=== PATIENT | male | born 1955 | race Caucasian/White ===

== ENCOUNTER → 2017-06-07 | Day surgery (SDC) | payer OTHER, BC ==
[2017-05-28 07:36] VITALS: BMI 39.0
[~2017-06-07] VITALS: Ht 152.4 cm; Wt 90.9 kg
[~2017-06-07] MED LIST: ACETAMINOPHEN 325 MG TAB PO PRN; ASPI81TA28 PO; ATOR-26 PO; BUSP-8 PO; BUSP5TAB59 PO; CZR50 PO; DiphenhydrAMINE HCL 50 MG/ML VIAL XX SCH; KETAMINE HCL INJ 50 MG/ML 10 ML VIAL ONE; LACTATED RINGER'S 1000ML 1,000 ML IV SCH; LIDOCAINE HCL 2% 2 ML VIAL (20MG/ML) ONE; METF-384 PO; MIDAZOLAM HCL 1 MG/ML 2ML VIAL ONE; NTRGSL/4 UT; OMEP40CA41 PO; OXYC-57 PO; PIOG1TAB20 PO; PROPOFOL IV EMULSION 10 MG/ML 20 ML VIAL IV ONE; VENL75CA PO
[2017-06-07 07:36] VITALS: BP 149/90; PULSE 67; TEMP 36.9; O2SAT 94; Ht 152.4 cm; Wt 90.9 kg
[2017-06-07 07:56] LABS: HEMATOCRIT 42.2 % (42-52); MEAN CELL VOLUME 92.7 fL (80-100); MEAN PLATELET VOLUME 11.8 fL (7.4-10.4); PLATELET COUNT 175 K/uL (130-400); RED BLOOD COUNT 4.55 M/uL (4.7-6.1); WHITE BLOOD COUNT 8.99 K/uL (4.8-10.8)
[2017-06-07 08:12] LABS: MEAN CORPUSCULAR HGB CONC 33.4 g/dl (32-36)
[2017-06-07 08:18] LABS: BUN/CREATININE RATIO 14.3 (10-20); CALCIUM 8.6 mg/dl (8.5-10.1); CREATININE 0.84 mg/dl (0.60-1.40); POTASSIUM 3.6 mmol/L (3.5-5.1)
== END | disposition home or self-care (01) ==
LOC: C.ACU 07:15 → EDSTATUS 08:30
PROVIDERS: ATTEND Orthopaedic Surgery
DX: Z53.8 Procedure and treatment not carried out for other reasons (principal); M25.512 Pain in left shoulder

== ENCOUNTER → 2017-07-17 | Day surgery (SDC) | payer OTHER, BC ==
[2017-06-21 08:28] VITALS: BMI 39.0
--- NOTE | 2017-07-10 12:40 | HISTORY & PHYSICAL EXAMINATION ---
DATE OF ADMISSION: 07/17/2017 DATE OF MRI: 07/17/2017. SUBJECTIVE CHIEF COMPLAINT: Left shoulder pain. HISTORY OF PRESENT ILLNESS: The patient is a 61-year-old male who presents with left shoulder pain. He states that the pain occurs occasionally and is described as aching, sharp and throbbing. He has tried cortisone injections with only mild improvement. The patient has previously underwent attempts in an MRI machine at 2 different locations but was able to finish the study and he will receive IV sedation for a left shoulder MRI. PAST MEDICAL HISTORY: Significant for hypertension, hypercholesterolemia, sleep apnea, tqn-hancfoz-ruqdhckhe diabetes, GERD, obesity. PAST SURGICAL HISTORY: The patient denies any surgeries. SOCIAL HISTORY: He drinks 3-4 cans of beer a day. Denies smoking or tobacco use. She denies IV or illegal drug use. He lives in a 2-story house. 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 FAMILY HISTORY: His mom has a history of heart attack. ALLERGIES: No known drug allergies. MEDICATIONS: Metformin 1000 mg daily, omeprazole 40 mg daily, losartan 50 mg daily, atorvastatin, aspirin 81 mg, buspirone 5 mg, pioglitazone 45 mg REVIEW OF SYSTEMS: Denies headaches, fevers, chills, double vision, blurry vision, sore throat, cough, chest pain, nausea, vomiting, diarrhea, constipation, numbness, tingling, difficulty going to the bathroom, thoughts to harm herself or harm others or depression. He is positive for joint pain and joint stiffness of the left shoulder. OBJECTIVE: GENERAL APPEARANCE: The patient is a 61-year-old male sitting in no acute distress. He is well dressed, well nourished. He is awake, alert and oriented x3. VITAL SIGNS: He is 60 inches tall, 205 pounds. HEAD, EYES, EARS, NOSE, AND THROAT: Normocephalic, atraumatic. Extraocular movements are intact. Mucosa was moist. No septal deviation. NECK: Supple with no lymphadenopathy, no JVD, no thyromegaly. HEART: Regular rate and rhythm. LUNGS: Clear to auscultation. No wheezing or rhonchi. ABDOMEN: Soft, nontender, nondistended. Normal bowel sounds, no hepatosplenomegaly. EXTREMITIES: Paying particular attention to the left shoulder, he has active forward flexion 0-180 degrees, abduction to 0-180 degrees, external rotation 0-90 degrees, internal rotation 0-90 degrees. He has a positive Neer and Doherty impingement sign, negative Speed's, negative Calhoun's. Strength of the rotator cuff is diminished compared to the other side. NEUROLOGIC: Cranial nerves II-XII are intact. Pulses were compared bilaterally and were equal. IMPRESSION: Left shoulder pain. MRI to rule out rotator cuff tear. PLAN: The patient has had shoulder pain for some time now. He has tried cortisone injections with minimal relief. Initially, we wanted to order an MRI, but he was unable to obtain at 2 different facilities due to a claustrophobic reaction. We will have him scheduled for a left shoulder MRI with IV sedation. Risks and benefits to the MRI were discussed and he understands these risks and benefits. All questions were answered to his satisfaction. We will see him after the MRI to go over the test results and treatment options. BLANCA
[~2017-07-17] VITALS: Ht 152.4 cm; Wt 90.9 kg
[~2017-07-17] MED LIST changes: -ACETAMINOPHEN 325 MG TAB PO PRN; +ATROPINE SULFATE 0.1 MG/ML 5ML SYR IV PRN; -DiphenhydrAMINE HCL 50 MG/ML VIAL XX SCH; +EpHEDrine SULFATE INJ 50 MG/ML AMP IV PRN; +FENTANYL CITRATE INJ 50 MCG/1 ML 2 ML VIAL ONE; -LIDOCAINE HCL 2% 2 ML VIAL (20MG/ML) ONE; +ONDANSETRON INJ 2 MG/ML 2 ML VIAL IV PRN
[2017-07-17 09:40] VITALS: BP 174/76; PULSE 61; TEMP 36.6; O2SAT 95; Ht 152.4 cm; Wt 90.9 kg
[2017-07-17 11:40] VITALS: BP 150/91; PULSE 74; TEMP 36.7; O2SAT 100
--- NOTE | 2017-07-17 12:07 | Anesthesiology Progress Note ---
Anesthesia Post Op Note Date & Time Jul 17, 2017 at 12:07 Vital Signs Pain Intensity: 0 Vital Signs Past 12 Hours Date Time Temp Pulse Resp B/P (MAP) Pulse Ox O2 Delivery O2 Flow Rate FiO2 07/17/17 11:40 36.7 74 18 150/91 100 Nasal Cannula 2 07/17/17 09:40 36.6 61 22 174/76 (108) 95 Room Air Notes Mental Status: alert / awake / arousable, participated in evaluation Pt Amnestic to Procedure: Yes Nausea / Vomiting: adequately controlled Pain: adequately controlled Airway Patency, RR, SpO2: stable & adequate BP & HR: stable & adequate Hydration State: stable & adequate Anesthetic Complications: no major complications apparent
[2017-07-17 12:15] VITALS: BP 183/82; PULSE 71; TEMP 36.6; O2SAT 96
--- NOTE | 2017-07-17 12:27 | DIAGNOSTIC IMAGING REPORT ---
LEFT UPPER EXT JOINT WITHOUT CLINICAL HISTORY: 61 years-old Male with LT SHOULDER PAIN. Symptoms are subacute in nature. Decreased range of motion following recent overhead work in December 2016. COMPARISON: None. TECHNIQUE: Multiplanar, multi sequence MRI of the left shoulder was performed without intravenous contrast. FINDINGS: Exam is very limited secondary to patient motion. ROTATOR CUFF: There is a large full-thickness tear of the supraspinatus tendon involving the anterior, mid and posterior fibers which appears to be complete, however a few residual fibers may be intact. There is redundancy and retraction of the tendon fibers to the level of the mid humeral head. There is mild to moderate atrophy of the supraspinatus musculature with associated mild intramuscular edema and fluid tracking along the myotendinous junction. There is thickening with intermediate T2 signal noted involving the infraspinatus tendon compatible with moderate tendinosis. Low-grade partial thickness articular sided tearing involves the posterior insertional fibers of the infraspinatus tendon, best seen on the coronal images. No definite high-grade or full-thickness tear of the infraspinatus seen. Teres minor is intact. There is moderate tendinosis of the subscapularis tendon with intermediate grade intrasubstance tearing noted involving the insertional fibers. (for example best seen on image 15 of the axial PD series). Additionally, there is high-grade partial thickness tearing noted of the inferior and mid fibers which is irregular and complex seen on image 14 of the axial series. No retraction or full-thickness tear identified. The superior fibers appear intact. BICEPS TENDON: The long head biceps tendon is intact. No definite evidence of tendinosis. The biceps debby and anchor are intact. Please note however that evaluation of the biceps tendon is limited secondary to motion. LABRUM: Multifocal fraying and irregularity involves the labrum notably within the superior quadrants both anteriorly and posteriorly with additional fraying of the anteroinferior labrum. No discrete acute labral tear identified. GLENOHUMERAL JOINT: Mild glenohumeral osteoarthritis with marginal spurring is noted. No definite intra-articular loose body. There is a moderate to large joint effusion. ACROMIOCLAVICULAR JOINT: Moderate osteoarthritis with capsular hypertrophy and marginal spurring involves the AC joint. The acromion has a curved undersurface. There is a moderate degree of subacromial/subdeltoid bursitis with fluid from the glenohumeral joint space tracking into the subacromial tissue. OUTLET SPACES: The suprascapular notch and quadrilateral space are without obstructing or space occupying lesions. BONE MARROW: No focal abnormality, fracture or marrow occupying lesion. SOFT TISSUES: The periarticular soft tissues are unremarkable. IMPRESSION: 1. Very limited study secondary to extensive patient motion. 2. Large full-thickness tear of the supraspinatus tendon appears to be complete, however a few residual fibers may be intact. There is redundancy and retraction of the tendon with likely reactive fluid tracking along the myotendinous junction. Additionally, there is mild to moderate atrophy of the supraspinatus musculature. 3. High-grade partial tear involves the mid and inferior fibers of the subscapularis tendon with background tendinosis. 4. Tendinosis of the infraspinatus tendon with low-grade partial articular sided fraying of the posterior insertion of fibers. No high-grade or full-thickness tear. 5. Fluid within the subacromial/subdeltoid bursa suggests admixture of fluid extending through the full thickness supraspinatus tear with subacromial/subdeltoid bursitis. The above report was generated using voice recognition software. It may contain grammatical, syntax or spelling errors. Electronically signed by: Denilson Robbins M.D. 07/17/2017 12:26 PM Dictated Date/Time: 07/17/2017 12:08 PM
== END | disposition home or self-care (01) ==
LOC: C.ACU 09:22
PROVIDERS: ATTEND Orthopaedic Surgery
DX: M75.122 Complete rotator cuff tear or rupture of left shoulder, not specified as traumatic (principal); I10 Essential (primary) hypertension; E78.00 Pure hypercholesterolemia, unspecified; E11.9 Type 2 diabetes mellitus without complications; K21.9 Gastro-esophageal reflux disease without esophagitis; E66.9 Obesity, unspecified; G47.30 Sleep apnea, unspecified; Z82.49 Family history of ischemic heart disease and other diseases of the circulatory system; Z79.84 Long term (current) use of oral hypoglycemic drugs; Z79.899 Other long term (current) drug therapy

== ENCOUNTER 2017-08-13 08:23 | Day surgery (SDC) | payer OTHER, BC ==
[2017-07-31 11:41] VITALS: BMI 40.0
--- NOTE | 2017-07-31 12:18 | PAT Medication Instructions ---
Service Date Jul 31, 2017. Current Home Medication List Aspirin (Aspirin Ec), 81 MG PO QAM Atorvastatin (Lipitor), 80 MG PO QAM Buspirone Hcl (Buspirone Hcl), 1 TAB PO QAM Losartan Potassium (Losartan Potassium), 1 TAB PO QAM Metformin Hcl (Glucophage), 1,000 MG PO QAM Omeprazole (Prilosec), 40 MG PO QAM Pioglitazone Hcl (Pioglitazone Hcl), 1 TAB PO QAM Venlafaxine Hcl (Effexor Xr), 1 CAP PO QAM Medication Instructions For Your Scheduled Surgery - Check with surgeon for instructions: Aspirin (Aspirin Ec), 81 MG PO QAM - Hold the following medications 48 hours prior to surgery: Metformin Hcl (Glucophage), 1,000 MG PO QAM - Hold the following medications the morning of surgery: Losartan Potassium (Losartan Potassium), 1 TAB PO QAM Pioglitazone Hcl (Pioglitazone Hcl), 1 TAB PO QAM - Take the following medications the morning of surgery with a sip of water: Venlafaxine Hcl (Effexor Xr), 1 CAP PO QAM Omeprazole (Prilosec), 40 MG PO QAM Buspirone Hcl (Buspirone Hcl), 1 TAB PO QAM Atorvastatin (Lipitor), 80 MG PO QAM If you have any questions please call us at [phone] or [phone] or [phone]
--- NOTE | 2017-07-31 12:55 | DIAGNOSTIC IMAGING REPORT ---
CHEST PREADMISSION(PA/LAT) CLINICAL HISTORY: 61 years-old Male presenting with preoperative assessment. TECHNIQUE: PA and lateral views of the chest were obtained. COMPARISON: None. FINDINGS: Cardiomediastinal silhouette normal. Lungs and pleural spaces clear. Degenerative changes of the thoracic spine. Upper abdomen normal. IMPRESSION: 1. No acute cardiopulmonary disease. Electronically signed by: Alexey Medina M.D. 07/31/2017 12:53 PM Dictated Date/Time: 07/31/2017 12:53 PM
[2017-07-31 13:45] LABS: BASO % 0.2 %; BASO ABS # 0.02 K/uL (0-0.2); COMPLETE YES; EOS % 4.9 %; HEMATOCRIT 42.4 % (42-52); IG% 0.2 %; LYMPH ABS # 3.03 K/uL (1.2-3.4); MEAN CELL VOLUME 93.2 fL (80-100); MEAN CORPUSCULAR HEMOGLOBIN 32.7 pg (25-34); MEAN CORPUSCULAR HGB CONC 35.1 g/dl (32-36); MEAN PLATELET VOLUME 12.5 fL (7.4-10.4); MONO % 7.7 %; PLATELET COUNT 169 K/uL (130-400); RED BLOOD COUNT 4.55 M/uL (4.7-6.1); WHITE BLOOD COUNT 8.18 K/uL (4.8-10.8)
[2017-07-31 13:52] LABS: BUN/CREATININE RATIO 15.5 (10-20); CALCIUM 8.6 mg/dl (8.5-10.1); CREATININE 0.73 mg/dl (0.60-1.40); POTASSIUM 3.9 mmol/L (3.5-5.1)
[2017-07-31 13:57] LABS: PARTIAL THROMBOPLASTIN RATIO 1.1; PROTHROMBIN TIME (PATIENT) 11.1 SECONDS (9.0-12.0)
--- NOTE | 2017-08-12 08:32 | HISTORY & PHYSICAL EXAMINATION ---
DATE OF ADMISSION: 08/13/2017 CHIEF COMPLAINT: Left shoulder pain. HISTORY OF PRESENT ILLNESS: The patient is a 61-year-old male who presented with left shoulder pain. He states that the pain occurs occasionally is described as aching, sharp and throbbing. The patient has tried cortisone injections, nonsteroidal anti-inflammatories and physical therapy with minimal relief. He would like to proceed with a left shoulder rotator cuff repair, subacromial decompression and distal clavicle excision. PAST MEDICAL HISTORY: Significant for hypertension, hypercholesterolemia, sleep apnea, nlm-oifvrmn-fitikepou diabetes, GERD, and obesity. PAST SURGICAL HISTORY: The patient denies any surgeries. SOCIAL HISTORY: Drinks 3-4 cans of beer a day. He denies smoking or tobacco use. Denies IV or illegal drug use. He lives in a [address] house. 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 FAMILY HISTORY: His mom has a history of heart attack. ALLERGIES: He has no known drug allergies. MEDICATIONS: Metformin 1000 mg daily, omeprazole 40 mg daily, losartan 50 mg daily, atorvastatin, aspirin 81 mg, buspirone 5 mg, pioglitazone 45 mg. REVIEW OF SYSTEMS: He denies headaches, fevers, chills, double vision, blurry vision, sore throat, chest pain, nausea, vomiting, diarrhea, constipation, numbness, tingling, difficulty going to the bathroom, thoughts to harm herself or harm others or depression. He is positive for joint pain and joint stiffness of the left shoulder. OBJECTIVE: GENERAL APPEARANCE: The patient is a 61-year-old male sitting in no acute distress. He is well dressed, well nourished. He is awake, alert and oriented x3. VITAL SIGNS: She is 60 inches tall, 205 pounds. HEENT: Normocephalic, atraumatic. Extraocular movements are intact. Mucosa was moist. No septal deviation. NECK: Supple with no lymphadenopathy, no JVD, no thyromegaly. HEART: Regular rate and rhythm with no murmurs or gallops. LUNGS: Clear to auscultation. No wheezing or rhonchi. ABDOMEN: Soft, nontender, nondistended. Normal bowel sounds, no hepatosplenomegaly. EXTREMITIES: Paying particular attention to the left shoulder, he is able to actively forward flex 0-180 degrees, abduct 0-180 degrees, externally rotate 0-90 degrees and internally rotate 0-90 degrees. He has positive Neer impingement sign negative Speed's, negative Bennett's positive empty can, strength of the rotator cuff is diminished compared to the other side. NEUROLOGIC: Cranial nerves II-XII were intact. Pulses were compared bilaterally and were equal. IMPRESSION: Left shoulder rotator cuff tear. PLAN: The patient is scheduled for a left shoulder rotator cuff repair, subacromial decompression, and distal clavicle excision. The patient has underwent cortisone injections, nonsteroidal anti-inflammatories and physical therapy with no relief. He would like to proceed with a left shoulder rotator cuff repair, subacromial decompression, and distal clavicle excision. Risks and benefits to surgery were discussed that included but not limited to infection, DVT, pain, stiffness, need for revision surgery, damage to blood vessels, damage to nerves, PE, and anesthesia risks were all discussed with the patient and he wishes to proceed. All questions were answered to his satisfaction. No DVT prophylaxis is needed. He will be discharged home with outpatient physical therapy. BLANCA
[~2017-08-13] VITALS: Ht 152.4 cm; Wt 93.3 kg
[~2017-08-13 08:23] MED LIST changes: -ATROPINE SULFATE 0.1 MG/ML 5ML SYR IV PRN; -BUSP-8 PO; +CEFAZOLIN 2000 MG/60 ML D5W IV SCH; +DEXAMETHASONE SOD INJ 4 MG/ML VIAL ONE; -EpHEDrine SULFATE INJ 50 MG/ML AMP IV PRN; +GLYCOPYRROLATE INJ 0.2 MG/ML VIAL ONE; -KETAMINE HCL INJ 50 MG/ML 10 ML VIAL ONE; +LIDOCAINE HCL 2% 2 ML VIAL (20MG/ML) ONE; +NEOSTIGMINE METHYLSULFATE 5 MG/5 ML SYR ONE; -NTRGSL/4 UT; -ONDANSETRON INJ 2 MG/ML 2 ML VIAL IV PRN; +ONDANSETRON INJ 2 MG/ML 2 ML VIAL ONE; -OXYC-57 PO; +ROCURONIUM BROMIDE 10 MG/ML 5 ML VIAL IV ONE; +ROPIVACAINE 0.5% 5 MG/ML 30 ML VIAL ONE
[2017-08-13 08:45] VITALS: BP 160/89; PULSE 64; TEMP 36.5; O2SAT 96; Ht 152.4 cm; Wt 93.3 kg
--- NOTE | 2017-08-13 08:49 | History & Physical Bridge Note ---
H&P Re-Evaluation Bridge Note: I have examined the patient, reviewed the History & Physical and in the interval since the performance of the History & Physical I have noted the following changes of clinical significance: No changes noted
[2017-08-13] MEDS ORDERED: LIDOCAINE/EPINEPHRINE 1% 20 ML VIAL ONE (09:39)
[2017-08-13] MEDS ORDERED: BUPIVACAINE 0.5 % 5 MG/1 ML MPF 30ML VIAL ONE (09:40)
[2017-08-13] MEDS ORDERED: EpINEphrine HCL INJ 1 MG/ML 5ML SYRINGE ONE (09:40)
[2017-08-13] MEDS ORDERED: DexMEDEtomidine HCL 100 MCG/ML 2ML VIAL IV ONE (09:54)
[2017-08-13] MEDS ORDERED: MIDAZOLAM HCL 1 MG/ML 2ML VIAL ONE (10:36)
[2017-08-13] MEDS ORDERED: EpHEDrine SULFATE 50MG/5ML SYR ONE ×2 (10:58→12:17)
[2017-08-13] MEDS ORDERED: GLYCOPYRROLATE INJ 0.2 MG/ML VIAL ONE (10:58)
[2017-08-13] MEDS ORDERED: ROCURONIUM BROMIDE 10 MG/ML 5 ML VIAL IV ONE (10:58)
[2017-08-13] MEDS ORDERED: PHENYLEPHRINE HCL INJ 10 MG/ML VIAL ONE (10:58)
[2017-08-13] MEDS ORDERED: LARYING-O-JET KIT (LTA) ONE ×2 (10:58)
[2017-08-13] MEDS ORDERED: ATROPINE SULFATE 0.1 MG/ML 5ML SYR IV PRN (11:30)
[2017-08-13] MEDS ORDERED: HYDROmorphone INJ 2 MG/ML SYR/VIAL IV PRN (11:30)
[2017-08-13] MEDS ORDERED: KETOROLAC TROMETHAMINE 30 MG/ML VIAL IV. PRN (11:30)
[2017-08-13] MEDS ORDERED: ONDANSETRON INJ 2 MG/ML 2 ML VIAL IV PRN ×2 (11:30→12:30)
[2017-08-13] MEDS ORDERED: D5W AND 1/2NSS + 20MEQ KCL 1,000 ML IV SCH (12:30)
[2017-08-13] MEDS ORDERED: OXYCODONE/ACETAMINOPHEN 5-325 TAB PO PRN ×2 (12:30)
[2017-08-13] MEDS ORDERED: IBUPROFEN 200 MG TAB PO PRN (12:30)
[2017-08-13] MEDS ORDERED: OXYC-57 PO (12:33)
--- NOTE | 2017-08-13 12:36 | Discharge Instructions ---
Discharge Instructions Date of Service Aug 13, 2017. Admission Reason for Admission: Left Shoulder Impingement, Osteoarthritis, Rtc Tea Discharge Discharge Diagnosis / Problem: S/P Left shoulder RCR, SAD, DCE Discharge Goals Goal(s): Decrease discomfort, Improve function Activity Recommendations Activity Limitations: per Instructions/Follow-up section . Instructions / Follow-Up Instructions / Follow-Up [facility] DISCHARGE INSTRUCTIONS: ROTATOR CUFF REPAIR SELF CARE INSTRUCTIONS A. You are permitted to loosen your sling/immobilizer to move your elbow, wrist , and hand to prevent stiffness. You should use your well arm (good arm) to assist the operated extremity when trying to raise the arm away from the body, hygiene purposes. Do NOT actively try to use/engage your shoulder muscles in operative arm at this time. You should NOT do overhead activity, lifting, or attempt to reach behind your back. B. You may start Physical Therapy upon discharge 2-3 days after surgery. You will be provided a prescription for therapy with specific restrictions, if needed, at time of discharge. C. At 48 hours post-operatively, you may change your dressing. Use band-aids and change daily. You are allowed to shower at this time and get the incision area wet, but DO NOT soak or submerge incision area in water. (No baths, swimming pools, hot tubs) D. Do NOT apply soap or any ointment/lotions directly over incision. E. You may use ice as needed to operative shoulder SPECIAL CARE INSTRUCTIONS: VERY IMPORTANT TO READ AND REVIEW A. There are a few signs you need to watch for after you are home. Call [facility] at [phone] if you experience any of the following: a. Increased severe shoulder pain. Some pain is expected especially when you exercise b. Increased swelling in your shoulder or arm; pain or swelling in either upper extremity. (Note: swelling and stiffness is normal and expected for several weeks post op, depending on type of shoulder surgery you had). c. Any fluid or drainage from the incision; redness of the incision. d. Shortness of breath or chest pain. B. Please call [facility] at [phone] if you have any questions or concerns about your operation or recovery. C. Call your physician if: a. Temperature is greater than 101 degrees (F). b. Pain is not relieved by prescribed pain medications. c. Increase drainage or redness from incision. d. Unanswered questions or concerns. D. Pain Medication: a. You will be prescribed pain medication upon discharge that should last till your first post-operative appointment. b. If you experience nausea and/or skin rash, discontinue this medication and contact our office for an alternative medication. c. Caution- narcotic pain medication can cause constipation. FOLLOW UP VISIT: Please call [facility] at [phone] to schedule a follow up appointment 10-14 days from your surgery date. Current Hospital Diet Patient's current hospital diet: Regular Diet Discharge Diet Recommended Diet: Regular Diet Procedures Procedures Performed: Left Shoulder Arthroscopic Subacromial Decompression, Distal Clavicle Excision, Rotator Cuff Repair Pending Studies Studies pending at discharge: no Medical Emergencies . Who to Call and When: Medical Emergencies: If at any time you feel your situation is an emergency, please call 911 immediately. . Non-Emergent Contact Non-Emergency issues call your: Surgeon Call Non-Emergent contact if: temperature is above 101.5, your pain is worsening, wound has increased drainage, wound has increased redness . "Provider Documentation" section prepared by Stephon Solomon. . VTE Core Measure Inpt VTE Proph given/why not?: Treatment not indicated [place] Drug Monitoring Program Search Results: patient reviewed within database, no issues identified
[2017-08-13] MEDS ORDERED: PROPOFOL IV EMULSION 10 MG/ML 20 ML VIAL IV ONE (12:37)
--- NOTE | 2017-08-13 13:10 | Anesthesiology Progress Note ---
Anesthesia Post Op Note Date & Time Aug 13, 2017 at 13:10 Vital Signs Pain Intensity: 0 Vital Signs Past 12 Hours Date Time Temp Pulse Resp B/P (MAP) Pulse Ox O2 Delivery O2 Flow Rate FiO2 08/13/17 13:00 36.3 82 16 140/72 93 Nasal Cannula 3 08/13/17 12:50 78 16 118/78 93 Nasal Cannula 4 08/13/17 12:40 36.2 82 16 157/89 93 Nasal Cannula 4 08/13/17 12:30 36.2 81 16 149/79 94 Nasal Cannula 4 08/13/17 08:45 36.5 64 18 160/89 96 Room Air Notes Mental Status: alert / awake / arousable, participated in evaluation Pt Amnestic to Procedure: Yes Nausea / Vomiting: adequately controlled Pain: adequately controlled Airway Patency, RR, SpO2: stable & adequate BP & HR: stable & adequate Hydration State: stable & adequate Anesthetic Complications: no major complications apparent
[2017-08-13 13:18] VITALS: BP 148/90; PULSE 85; TEMP 36.3; O2SAT 93
[2017-08-13 13:48] VITALS: BP 170/92; PULSE 90; O2SAT 94
[2017-08-13 14:18] VITALS: BP 155/90; PULSE 85; TEMP 36.3; O2SAT 93
--- NOTE | 2017-08-13 15:19 | [facility] Operative Report ---
Operative Report Operative Date Aug 13, 2017. Pre-Operative Diagnosis Left shoulder rotator cuff tear, impingement, ac joint arthritis, labral tear, synovitis Post-Operative Diagnosis Same Procedure(s) Performed Left Shoulder Arthroscopic Subacromial Decompression, Distal Clavicle Excision, Rotator Cuff Repair, Extensive Debridement Surgeon Dr Alexey Figueroa Sales Project Manager Surgeon(s) Stephon Solomon PA-C Estimated Blood Loss 5ml Findings As above Specimens None as per Surgeon Drains none Anesthesia Gen. and interscalene block Complication(s) None Disposition Recovery Room / PACU Indications 61-year-old male who developed a full-thickness rotator cuff tear. He wishes to proceed with arthroscopic repair. Description of Procedure The MRI demonstrated a full-thickness rotator cuff tear. We discussed various treatment measures. The patient wished to proceed with arthroscopic repair. Risks, benefits and alternatives to surgery including, but not limited to, infection DVT, pain, stiffness, need for revision surgery, failure to relieve all symptoms, damage to blood vessels, damage to nerves, risk of anesthesia were discussed with the patient and they wished to proceed. The patient was identified. Laterality was confirmed and marked. The patient received a preoperative antibiotic as well as an interscalene block. They were transferred to the operating room and placed in the supine position and induced into general endotracheal anesthesia per the anesthesia staff. The patient was then safely transferred to the lateral decubitus position, secured by a beanbag. An axillary roll was placed. All pressure points were well-padded. The limb was placed in 10 pounds of lateral traction and then prepped and draped in the usual standard manner with ChloraPrep. The portal sites were anesthetized with 2% lidocaine with epinephrine. I made a standard posterior viewing portal made through a stab incision and then bluntly entered the glenohumeral joint. Then under spinal needle localization, I establish an anterior superolateral portal. The patient had a full-thickness rotator cuff tear through the supraspinatus extending into the infraspinatus. They had a degenerative tear in the anterior, superior and posterior aspects of the glenoid labrum. This was debrided back to a stable base utilizing a shaver. Synovitic change in the anterior aspect of the joint was debrided utilizing a shaver. The cartilage of the humeral head and glenoid had some minor degeneration. The long head of the biceps was normal. The subscapularis had some longitudinal splitting but the insertion was intact. I then removed the instrumentation from the joint and entered the subacromial space and established a lateral portal. There was a full-thickness rotator cuff tear that measured about 2.5 cm in diameter. I debrided the footprint with a shaver to establish a good bleeding response. Through a stab incision I placed a 5.5 mm HEALICOIL suture anchor. I passed the ultra braid sutures in a horizontal mattress with a fast passive scorpion. I then shuttled the ultra tape with a shuttle suture. I repeated this process for a posterior medial anchor. I tied the ULTRABRAID sutures with sliding Winchester knots reinforced for 3 half hitches on alternating posts. I then took 1 ULTRABRAID suture and one ultra tape from each anchor I placed them in a 5.5 mm Multifix S anchor. I placed one anterolaterally. I then repeated this process another suture anchor posterolaterally, completing my double row construct. I then released the CA ligament with cautery and performed a subacromial decompression, first removing the anterior inferior spur from laterally and then completing with a cutting block technique. I then performed a distal clavicle excision removing a total of 10 mm of bone. All instrumentation was then removed from the shoulder. Portal sites were closed with nylon. A sterile dressing was applied and a sling placed. All needle and sponge counts were correct at the end of the procedure. The patient was transferred to the PACU in stable condition without apparent complication. I attest to the content of the Intraoperative Record and any orders documented therein. Any exceptions are noted below.
== END 2017-08-13 13:18 | disposition home or self-care (01) ==
LOC: C.ACU 08:23
PROVIDERS: ATTEND Orthopaedic Surgery
DX: M75.122 Complete rotator cuff tear or rupture of left shoulder, not specified as traumatic (principal); M25.812 Other specified joint disorders, left shoulder; M65.812 Other synovitis and tenosynovitis, left shoulder; S43.492A Other sprain of left shoulder joint, initial encounter; X58.XXXA Exposure to other specified factors, initial encounter; M19.012 Primary osteoarthritis, left shoulder; I10 Essential (primary) hypertension; E78.00 Pure hypercholesterolemia, unspecified; E11.9 Type 2 diabetes mellitus without complications; G47.30 Sleep apnea, unspecified; K21.9 Gastro-esophageal reflux disease without esophagitis; E66.9 Obesity, unspecified; Z79.84 Long term (current) use of oral hypoglycemic drugs; Z79.82 Long term (current) use of aspirin; Z79.899 Other long term (current) drug therapy

== ENCOUNTER 2025-09-28 21:04 | Inpatient (IN) ==
[2025-09-28] MEDS: ASPIRIN CHEW 324 MG PO STA (21:35)
--- NOTE | 2025-09-28 21:35 | Emergency Department Note ---
Impression & Plan Non-ST elevation (NSTEMI) myocardial infarction, CAD (coronary artery disease) ED Provider Note NAME: TRACIE GARCIA AGE: 69 SEX: M ARRIVES VIA: Walk-In INFORMANT: [Patient][, ] ED PROVIDER(S): Adrian Lamb MD CHIEF COMPLAINT: Chest pain, resolved, abnormal outpatient lab work PLAN: Disposition: Hospitalized Condition: Serious MEDICAL DECISION MAKING: Patient with abnormal outpatient troponin levels, EKG. His EKG here looks fairly unchanged from prior. The 1 in the channel sales manager office is not immediately available for review, there is report of T wave inversions laterally. Currently does not present. His troponin was approximately 200 earlier today, this to be repeated but patient will require hospitalization, heparinization. Patient is absolutely chest pain-free here, the remainder of his blood work is generally unremarkable other than some mild leukocytosis. Chest x-ray looks clear with a narrow mediastinum. Triage Nursing notes reviewed and agree them. Additional history obtained from spouse, reviewed cardiology outpatient note from earlier today Vital Signs: reviewed and remarkable for [no significant abnormalities] Differential diagnosis: Acute coronary syndrome, dissection, NSTEMI, STEMI, gastroesophageal reflux disease, pneumothorax ER treatment provided: Completion of aspirin, heparin drip initiated Diagnostics interpreted by me: ECG: Normal sinus rhythm, some T wave inversions in 2 and aVF, also in V3. Right bundle branch block present, looks similar to previous EKGs. Cardiac Monitoring: Normal sinus rhythm Laboratory studies: [See below] [] Imaging studies: [See below] [] Consultation(s): Hospitalist HPI: 69/M arrives for evaluation of Chest pain, abnormal outpatient blood work. Patient had coronary artery disease 5 years ago and required stent placement at [facility]. Since that time he has been doing okay, has not had any repeat cardiac catheterizations or cardiac events. Patient states that today he woke up and got some chest discomfort he took 2 nitro and called his channel sales manager who saw him in the office earlier today. They did some blood work, did an EKG that showed some T wave inversions and reportedly did an echocardiogram as well. They were told that if it was abnormal they will call him and they called him today to let him know his test was abnormal and to go to the emergency department. Patient is currently pain-free and has been since this morning.Patient does take aspirin and Plavix and took both of them this morning he believes. ROS: See above HPI for pertinent positives & negatives. A total of [10] systems reviewed and were otherwise negative. PAST MEDICAL HISTORY:[See Below] PAST SURGICAL HISTORY:[See Below] FAMILY HISTORY:[See Below] SOCIAL HISTORY:[See Below] HOME MEDICATIONS:[See Below] ALLERGIES:[See Below] VITALS:[See Below] PHYSICAL EXAMINATION: Gen: No acute distress, generally well appearing Eyes: PERRL, no redness or injection, EOMI Neck: Supple, normal ROM CV: S1, S2, No murmurs, no lower extremity edema Pulm: CTA bilaterally, no increased work of breathing, no wheezing GI: Abd soft, nontender, normal bowel sounds, no distension : No CVA tenderness, no suprapubic abdominal tenderness or distension Neuro: No acute focal neuro deficits, normal strength and sensation Skin: No rashes, wounds, or erythema. ED COURSE: Times/Reassessments: 9:30 PM: Patient evaluated in the room, pain-free, EKG without any ST segment elevation 10:18 PM:, Patient reassessed, remains chest pain-free 10:50 PM: Patient with uptrending troponins, heparin drip initiated, given aspirin, remains chest pain-free. Will discuss with hospitalist for hospitalization. Do not feel that he requires a emergent cath at this time given his lack of EKG changes and lack of chest pain at this time.He is feeling somewhat restless and is requesting his home trazodone for sleep, we will give that. He is also just generally uncomfortable in the ER stretcher but he is continue to deny chest pain. Adrian Lamb MD Past Med/Surg History Problem List (Updated 09/28/25 @ 22:56 by Adrian Lamb MD) Aortic stenosis Chest pain Dyspnea on exertion Aortic valve sclerosis Non-ST elevation (NSTEMI) myocardial infarction (Acute) Hypertension Hyperlipidemia Type 2 diabetes mellitus CVA (cerebral vascular accident) S/P coronary artery stent placement Ischemic cardiomyopathy CAD (coronary artery disease) (Acute) Medical History Cardiac arrest Social History Smoking Status: Never smoker Preferred Language: [place] Feels Safe at Home: Yes Allergies Allergies Allergy/AdvReac Type Severity Reaction Status Date / Time Penicillins Allergy Intermediate rash, Verified 09/28/25 22:41 itching ondansetron [From Zofran] Allergy Mild rash Verified 09/28/25 22:41 ticagrelor [From Brilinta] Allergy Mild rash Verified 09/28/25 22:41 Home Meds Home Medications Medication Instructions Recorded Confirmed aspirin 81 mg tablet,delayed 81 mg PO DAILY 09/13/20 09/28/25 release (Adult Aspirin Regimen) multivitamin 1 tab PO DAILY 09/13/20 09/28/25 trazodone 50 mg tablet 50 - 100 mg PO HS PRN Insomnia 02/13/22 09/28/25 hydroxyzine HCl 50 mg tablet 50 mg PO DAILY PRN itching 05/15/22 09/28/25 amlodipine 2.5 mg tablet 2.5 mg PO DAILY 07/14/24 09/28/25 pantoprazole 20 mg tablet,delayed 20 mg PO DAILY 04/13/25 09/28/25 release semaglutide 0.25 mg or 0.5 mg (2 0.5 mg subcut WK 04/13/25 09/28/25 mg/3 mL) subcutaneous pen injector ([employer]) clopidogrel 75 mg tablet 75 mg PO QAM 09/28/25 09/28/25 cyanocobalamin (vitamin B-12) 1,000 mcg PO DAILY 09/28/25 09/28/25 1,000 mcg tablet (Vitamin B-12) isosorbide mononitrate 120 mg 120 mg PO DAILY 09/28/25 09/28/25 tablet,extended release 24 hr magnesium oxide 400 mg PO DAILY 09/28/25 09/28/25 nitroglycerin 0.4 mg sublingual 0.4 mg sublingual DIRECTED PRN 09/28/25 09/28/25 tablet chest pain Previous Rx's Medication Instructions Recorded metformin 500 mg tablet 500 mg PO BID #180 tabs 08/01/23 metoprolol succinate 25 mg 25 mg PO BID #200 tabs 09/29/24 tablet,extended release 24 hr rosuvastatin 40 mg tablet (Crestor) 40 mg PO HS #100 tabs 09/29/24 valsartan 40 mg tablet 80 mg (2 x 40 mg) PO DAILY #200 09/29/24 tabs Results & Data (ED) Vital Signs Vital Signs - 24 hr 09/28/25 21:07 09/28/25 21:17 09/28/25 21:31 Temperature 36.4 C L Temperature Source Temporal Artery Scan Pulse Rate 68 72 Pulse Rate [Apical] Respiratory Rate 18 Respiratory Effort / Characteristics Non-Labored Spontaneous Respiratory Depth Normal Respiratory Pattern Regular Blood Pressure 148/72 H Blood Pressure [Right Arm] Blood Pressure Mean 97 Blood Pressure Mean [Right Arm] Blood Pressure Position Sitting Pulse Oximetry 95 98 Oxygen Delivery Method Room Air Room Air Sepsis Recent Fever Within 48 Hours No Sepsis New/Unexplained Change in Mental Status No Sepsis Action Taken by Nursing No Action Required 09/28/25 22:40 Temperature Temperature Source Pulse Rate Pulse Rate [Apical] 76 Respiratory Rate 18 Respiratory Effort / Characteristics Non-Labored Spontaneous Respiratory Depth Normal Respiratory Pattern Blood Pressure Blood Pressure [Right Arm] 122/72 Blood Pressure Mean Blood Pressure Mean [Right Arm] 88 Blood Pressure Position Pulse Oximetry 98 Oxygen Delivery Method Room Air Sepsis Recent Fever Within 48 Hours Sepsis New/Unexplained Change in Mental Status Sepsis Action Taken by Snf Medications Current Medication List: was personally reviewed by me Laboratory Data Attestation: I reviewed the patient's lab results. Mild leukocytosis, abnormal outpatient troponin, Troponins uptrending in the emergency department 09/28/25 Unknown 09/28/25 Unknown Lab Results 09/28/25 Range/Units Unknown WBC 15.16 H (4.8-10.8) K/ul RBC 4.58 L (4.70-6.10) M/uL Hgb 15.3 (14.0-18.0) g/dL Hct 43.8 (42.0-52.0) % MCV 95.6 (80.0-100.0) fL MCH 33.4 (25.0-34.0) pg MCHC 34.9 (32.0-36.0) g/dL RDW Std Deviation 45.1 (36.4-46.3) fL RDW Coeff of Fabi 12.7 (11.5-14.5) % Plt Count 116 L (130-400) K/uL MPV 13.2 H (9.4-12.4) fL Immature Gran % (Auto) 0.4 % Neut % (Auto) 71.1 % Lymph % (Auto) 18.5 % [place] % (Auto) 9.4 % Eos % (Auto) 0.3 % Baso % (Auto) 0.3 % Neut # (Auto) 10.78 H (1.40-6.50) K/uL Lymph # (Auto) 2.81 (1.20-3.40) K/uL [place] # (Auto) 1.43 H (0.11-0.59) K/uL Eos # (Auto) 0.04 (0.00-0.50) K/uL Baso # (Auto) 0.04 (0.00-0.20) K/uL Immature Gran # (Auto) 0.06 (0.01-0.20) K/uL Sodium 139 (136-145) mmol/L Potassium 4.1 (3.5-5.1) mmol/L Chloride 106 (98-107) mmol/L Carbon Dioxide 26 (21-32) mmol/L Anion Gap 7 (3-11) BUN 16 (6-23) mg/dl Creatinine 0.98 (0.6-1.4) mg/dl Est Cr Clr Drug Dosing 65.3 ml/min eGFR 82.44 BUN/Creatinine Ratio 16.3 (10-20) Glucose 193 H (70-99(Fasting)) mg/dl Calcium 9.7 (8.6-10.3) mg/dl Total Bilirubin 0.7 (0.2-1.0) mg/dl AST 40 H (13-39) U/L ALT 45 (7-52) U/L Alkaline Phosphatase 88 (34-104) U/L Troponin I High Sens 244.9 H* D (0-20) pg/ml Total Protein 7.9 (6.0-8.3) gm/dl Albumin 4.5 (3.4-5.0) gm/dl Globulin 3.4 (2.5-4.0) gm/dl Albumin/Globulin Ratio 1.3 (0.9-2) Administered Medications Heparin Sodium/Dextrose (Heparin 11645 Unit/500 Ml D5w) 25,000 units in 500 mls @ 16 mls/hr IV .Q24H [facility]; Protocol Stop: 10/28/25 22:29 Last Admin: 09/28/25 22:34 Dose: 800 units/hr, 16 mls/hr Documented By: CEASAR Co-signed By: MARYAN Discontinued Medications Aspirin (Aspirin Chew 324 Mg) 243 mg PO NOW STA Stop: 09/28/25 21:28 Last Admin: 09/28/25 21:35 Dose: 243 mg Documented By: CEASAR Heparin Sodium (Porcine) (Heparin Sod (Porcine) 1000 Unit/Ml) 1 units IV NOW ONE Stop: 09/28/25 22:31 Last Admin: 09/28/25 22:34 Dose: 4,000 units Documented By: CEASAR Co-signed By: MARYAN Heparin Sodium/Dextrose (Heparin Iv Adult Wt-Based Low-Dose W/ Initial Bolus Protocol) 1 each IV NOW STA; Protocol Stop: 09/28/25 22:16 Last Admin: 09/28/25 22:46 Dose: Not Given Documented By: CEASAR Trazodone HCl (Trazodone Hcl 50 Mg Tab) 50 mg PO NOW ONE Stop: 09/28/25 23:04 Last Admin: 09/28/25 23:18 Dose: 50 mg Documented By: Imaging Data Attestation: I personally reviewed and interpreted this imaging study as follows: My Impression: No acute cardiopulmonary abnormalities by my independent interpretation. Radiologist's Impression: Chest X-Ray 09/28/25 21:27 Exam(s): XR CXR 1 VIEW EXAM: XR Chest, 1 View CLINICAL HISTORY: Reason for exam: Chest pain, nonspecific. TECHNIQUE: Frontal view of the chest. COMPARISON: 07/31/2017 FINDINGS: Lungs: No consolidation. Pleural space: No significant pleural effusion. No pneumothorax. Heart: No cardiomegaly or pulmonary vascular congestion. Bones/joints: No acute fracture. No dislocation. IMPRESSION: No evidence of acute cardiopulmonary disease. Electronically signed by: Sallie Astorga M.D. 09/28/25 23:21 PM Discharge Plan Visit Data Chief Complaint: Cardiac Assessment Stated Complaint: HEART PROBLEMS, SENT BY WELDER ASSISTANT ED Provider: Adrian aLmb Discharge Problem: Non-ST elevation (NSTEMI) myocardial infarction, CAD (coronary artery disease) Patient Disposition: Being Evaluated by Hospitalist Condition: Serious Forms Stand Alone Forms: My [facility] Prescriptions Prescriptions: No Action metformin 500 mg tablet 500 mg PO BID Qty: 180 3RF valsartan 40 mg tablet 80 mg PO DAILY Qty: 200 3RF rosuvastatin [Crestor] 40 mg tablet 40 mg PO HS Qty: 100 3RF metoprolol succinate 25 mg tablet extended release 24 hr 25 mg PO BID Qty: 200 3RF aspirin [Adult Aspirin Regimen] 81 mg tablet,delayed release (DR/EC) 81 mg PO DAILY multivitamin Tablet 1 tab PO DAILY hydroxyzine HCl 50 mg tablet 50 mg PO DAILY PRN (Reason: itching) trazodone 50 mg tablet 50 - 100 mg PO HS PRN (Reason: Insomnia) Ozempic 0.25 mg or 0.5 mg (2 mg/3 mL) pen injector 0.5 mg subcut WK Rx Instructions: SATURDAY MORNINGS pantoprazole 20 mg tablet,delayed release (DR/EC) 20 mg PO DAILY amlodipine 2.5 mg tablet 2.5 mg PO DAILY cyanocobalamin (vitamin B-12) [Vitamin B-12] 1,000 mcg Tablet 1,000 mcg PO DAILY magnesium oxide 400 mg magnesium Tablet 400 mg PO DAILY clopidogrel 75 mg tablet 75 mg PO QAM isosorbide mononitrate 120 mg tablet extended release 24 hr 120 mg PO DAILY nitroglycerin 0.4 mg tablet, sublingual 0.4 mg sublingual DIRECTED PRN (Reason: chest pain) Rx Instructions: do not exceed 3 doses per episode Referrals Referrals: Joselito Kumar MD [Primary Care Provider] -
[2025-09-28 21:44] LABS: Hematocrit (blood only) 43.8 % (42.0-52.0); Hemoglobin 15.3 g/dL (14.0-18.0); Immature Granulocytes # (auto) 0.06 K/uL (0.01-0.20); Immature Granulocytes % (auto) 0.4 %; Mean Corpuscular Hemoglobin 33.4 pg (25.0-34.0); Mean Corpuscular Volume 95.6 fL (80.0-100.0); Platelet Count 116 K/uL (130-400); RDW Standard Deviation 45.1 fL (36.4-46.3); Red Blood Count 4.58 M/uL (4.70-6.10); White Blood Count 15.16 K/ul (4.8-10.8)
[2025-09-28 22:00] LABS: Alanine Aminotransferase 45.0 U/L (7-52); Albumin Globulin Ratio 1.3 (0.9-2); Albumin Level 4.5 gm/dl (3.4-5.0); Alkaline Phosphatase 88.0 U/L (34-104); Anion Gap 7.0 (3-11); Bilirubin,Total 0.7 mg/dl (0.2-1.0); Blood Urea Nitrogen 16.0 mg/dl (6-23); Calcium 9.7 mg/dl (8.6-10.3); Carbon Dioxide 26.0 mmol/L (21-32); Chloride 106.0 mmol/L (98-107); Creatinine Clr Calc Pharmacy 65.3 ml/min; Globulin 3.4 gm/dl (2.5-4.0); Glucose 193.0 mg/dl (70-99(Fasting)); Potassium 4.1 mmol/L (3.5-5.1); Sodium 139.0 mmol/L (136-145); Total Protein 7.9 gm/dl (6.0-8.3)
[2025-09-28] MEDS: HEPARIN SOD (PORCINE) 1000 UNIT/ML IV ONE (22:34)
[2025-09-28] MEDS: HEPARIN 25000 UNIT/500 ML D5W 25,000 UNITS/500 ML BAG IV SCH (22:34)
[2025-09-28] MEDS: Heparin IV Adult Wt-Based Low-Dose w/ INITIAL Bolus Protocol IV STA (22:46)
--- NOTE | 2025-09-28 23:23 | XRay Report ---
Exam(s): XR CXR 1 VIEW EXAM: XR Chest, 1 View CLINICAL HISTORY: Reason for exam: Chest pain, nonspecific. TECHNIQUE: Frontal view of the chest. COMPARISON: 07/31/2017 FINDINGS: Lungs: No consolidation. Pleural space: No significant pleural effusion. No pneumothorax. Heart: No cardiomegaly or pulmonary vascular congestion. Bones/joints: No acute fracture. No dislocation. IMPRESSION: No evidence of acute cardiopulmonary disease. Electronically signed by: Sallie Astorga M.D. 09/28/25 23:21 PM
--- NOTE | 2025-09-28 23:57 | History & Physical Report ---
Date of Service September 28, 2025 Assessment & Plan (1) Non-ST elevation (NSTEMI) myocardial infarction: (2) Aortic stenosis: (3) Type 2 diabetes mellitus: (4) S/P coronary artery stent placement: Plan The patient is a 69-year-old male with a past medical history including CAD, his tory of NSTEMI, mild aortic stenosis, hypertension, hyperlipidemia, diabetes mellitus type 2, CVA, history of coronary stent placement, and ischemic cardiomyopathy. He reports that he awoke with chest pain radiating to his left arm this morning, went to see his tubular stock glass bulb machine former, who then referred him to the office to the emergency department due to abnormal laboratories and EKG changes. Initial troponin changed from initial 197.8 to 248.7 to 244.9. EKG showed normal sinus rhythm at 64, first-degree heart block, right bundle branch block, with GA interval increased compared to previous. The patient was given aspirin 243 mg today with his initial 81 mg at home for total 324, started on heparin drip with bolus per protocol, and then referred for evaluation for admission to the [facility]. NSTEMI/CAD/hypertension/ischemic cardiomyopathy/chest pain relieved by sublingual nitroglycerin at home- He is status post LMCA to LAD PCI with angioplasty of circumflex and mid RCA [facility] MATE on 07/2020 History of myocardial perfusion study 2021 that suggested a small area of apical ischemia. Chest pain he had this morning he reports was different compared to his prior angina EKG in the outpatient setting showed new T wave abnormality in leads V5 and V6, which is resolved on current EKG in the ED. Initial troponin 197.8, will follow-up 248.7, and second follow-up 244.9. The patient was given additional aspirin at 243 mg, in total with his 81 mg to 324 mg Continue heparin bolus/drip begun in the ED Continue aspirin 81 mg daily, clopidogrel 75 mg daily, amlodipine 2.5 mg daily, isosorbide mononitrate 120 mg daily, mag oxide 400 mg daily, valsartan 80 mg daily metoprolol succinate extended release 25 mg twice daily. Most recent echocardiogram on 09/12/2023 with ejection fraction 55-59%, with mild aortic stenosis The patient will be admitted to telemetry for serial cardiac enzymes, serial EKG's, cardiac rhythm monitoring and a 2-D echocardiogram with Dopplers. Consult cardiology Hyperlipidemia- Continue rosuvastatin 40 mg at bedtime Check a fasting lipid panel Diabetes mellitus/weight loss management- Hold metformin Hold semaglutide Place on Accu-Cheks with NovoLog SSI Check hemoglobin A1c GERD- Continue pantoprazole Insomnia- Continue trazodone 50 mg p.o. at bedtime as needed History of Present Illness Primary Care Provider: Joselito Kumar MD The patient is a 69-year-old male with a past medical history including CAD, history of NSTEMI, mild aortic stenosis, hypertension, hyperlipidemia, diabetes mellitus type 2, CVA, history of coronary stent placement, and ischemic cardiomyopathy. He reports that he awoke with chest pain radiating to his left arm this morning, went to see his tubular stock glass bulb machine former, who then referred him to the office to the emergency department due to abnormal laboratories and EKG changes. Initial troponin changed from initial 197.8 to 248.7 to 244.9. EKG showed normal sinus rhythm at 64, first-degree heart block, right bundle branch block, with GA interval increased compared to previous. The patient was given aspirin 243 mg today with his initial 81 mg at home for total 324, started on heparin drip with bolus per protocol, and then referred for evaluation for admission to the [facility]. Allergies Allergy/AdvReac Type Severity Reaction Status Date / Time Penicillins Allergy Intermediate rash, Verified 09/28/25 22:41 itching ondansetron [From Zofran] Allergy Mild rash Verified 09/28/25 22:41 ticagrelor [From Brilinta] Allergy Mild rash Verified 09/28/25 22:41 Home Medications Medication Instructions Recorded Confirmed Type aspirin 81 mg tablet,delayed 81 mg PO DAILY 09/13/20 09/28/25 History release (Adult Aspirin Regimen) multivitamin 1 tab PO DAILY 09/13/20 09/28/25 History trazodone 50 mg tablet 50 - 100 mg PO HS PRN Insomnia 02/13/22 09/28/25 History hydroxyzine HCl 50 mg tablet 50 mg PO DAILY PRN itching 05/15/22 09/28/25 His tory metformin 500 mg tablet 500 mg PO BID #180 tabs 08/01/23 09/28/25 Rx amlodipine 2.5 mg tablet 2.5 mg PO DAILY 07/14/24 09/28/25 History metoprolol succinate 25 mg 25 mg PO BID #200 tabs 09/29/24 09/28/25 Rx tablet,extended release 24 hr rosuvastatin 40 mg tablet (Crestor) 40 mg PO HS #100 tabs 09/29/24 09/28/25 Rx valsartan 40 mg tablet 80 mg (2 x 40 mg) PO DAILY #200 09/29/24 09/28/25 Rx tabs pantoprazole 20 mg tablet,delayed 20 mg PO DAILY 04/13/25 09/28/25 History release semaglutide 0.25 mg or 0.5 mg (2 0.5 mg subcut WK 04/13/25 09/28/25 History mg/3 mL) subcutaneous pen injector (Ozempic) clopidogrel 75 mg tablet 75 mg PO QAM 09/28/25 09/28/25 History cyanocobalamin (vitamin B-12) 1,000 mcg PO DAILY 09/28/25 09/28/25 History 1,000 mcg tablet (Vitamin B-12) isosorbide mononitrate 120 mg 120 mg PO DAILY 09/28/25 09/28/25 History tablet,extended release 24 hr magnesium oxide 400 mg PO DAILY 09/28/25 09/28/25 History nitroglycerin 0.4 mg sublingual 0.4 mg sublingual DIRECTED PRN 09/28/25 09/28/25 History tablet chest pain Past Med/Surg History Problem List (Updated 09/28/25 @ 22:56 by Adrian Lamb MD) Aortic stenosis Chest pain Dyspnea on exertion Aortic valve sclerosis Non-ST elevation (NSTEMI) myocardial infarction (Acute) Hypertension Hyperlipidemia Type 2 diabetes mellitus CVA (cerebral vascular accident) S/P coronary artery stent placement Ischemic cardiomyopathy CAD (coronary artery disease) (Acute) Medical History Cardiac arrest Social History Smoking Status: Former smoker Second Hand Exposure: No; Do You Dip or Chew Tobacco: No; Hx Alcohol Use: Yes Alcohol type: beer Hx Substance Use: No Preferred Language: Pakistani Communication Ability: Effective Nurse Liaison Required: No Beliefs That Will Affect Care: None Current Living Situation: Spouse Feels Safe at Home: Yes Assistive Devices: None Review of Systems Review of Systems: The patient denies any further chest pain, palpitations, shortness of breath, dyspnea on exertion, cough, lower extremity swelling, sore throat, fevers, chills, sweats, fatigue, nausea, vomiting, diarrhea , constipation, abdominal pain, pelvic pain, blood in urine or stool, dysuria, urinary frequency or urgency, lightheadedness, dizziness, headache, memory loss, loss of consciousness, rash, abnormal bruising or bleeding, imbalance, focal or generalized weakness, numbness or tingling in arms or legs, generalized arthralgias or myalgias, back or neck pain, or night sweats. The review of systems is otherwise negative other than for that already noted above, and at least 10 systems have been reviewed. Physical Exam Physical Exam: The patient is awake, alert and oriented 3, well developed and well nourished, normocephalic and atraumatic, lying in bed and in no acute distress. HEENT--PERRL, EOMI, mucous membranes and oropharynx normal Neck--supple. No JVD. No bruits. Thyroid normal, trachea midline, no adenopathy. Heart--normal S1 and S2. No murmurs, rubs or gallops. Lungs--clear bilaterally, no respiratory distress, no accessory muscle use. Abdomen--normal bowel sounds and soft. Nontender. Nondistended, no hernias or masses, no organomegaly. Extremities--no cyanosis or clubbing. No edema. There are good distal pulses b/l. Dermatologic--normal skin turgor, normal color, no abnormal lymph nodes, no rash. Neurologic--cranial nerves II through XII grossly intact. Rheumatologic--normal range of motion. Psychiatric--normal affect. Results & Data Results & Data Vital Signs (Past 12 Hours) Vital Signs Temp Pulse Pulse Resp BP BP Pulse Ox 09/28/25 22:40 76 18 122/72 98 09/28/25 21:31 98 09/28/25 21:17 72 09/28/25 21:07 36.4 C L 68 18 148/72 H 95 O2 Del Method 09/28/25 22:40 Room Air 09/28/25 21:31 Room Air 09/28/25 21:17 09/28/25 21:07 Room Air Laboratory Results Laboratory Results WBC 15.16 K/ul (4.8-10.8) H 09/28/25 Unknown RBC 4.58 M/uL (4.70-6.10) L 09/28/25 Unknown Hgb 15.3 g/dL (14.0-18.0) 09/28/25 Unknown Hct 43.8 % (42.0-52.0) 09/28/25 Unknown MCV 95.6 fL (80.0-100.0) 09/28/25 Unknown MCH 33.4 pg (25.0-34.0) 09/28/25 Unknown MCHC 34.9 g/dL (32.0-36.0) 09/28/25 Unknown RDW Std Deviation 45.1 fL (36.4-46.3) 09/28/25 Unknown RDW Coeff of Fabi 12.7 % (11.5-14.5) 09/28/25 Unknown Plt Count 116 K/uL (130-400) L 09/28/25 Unknown MPV 13.2 fL (9.4-12.4) H 09/28/25 Unknown Immature Gran % (Auto) 0.4 % 09/28/25 Unknown Neut % (Auto) 71.1 % 09/28/25 Unknown Lymph % (Auto) 18.5 % 09/28/25 Unknown Wallace % (Auto) 9.4 % 09/28/25 Unknown Eos % (Auto) 0.3 % 09/28/25 Unknown Baso % (Auto) 0.3 % 09/28/25 Unknown Neut # (Auto) 10.78 K/uL (1.40-6.50) H 09/28/25 Unknown Lymph # (Auto) 2.81 K/uL (1.20-3.40) 09/28/25 Unknown Wallace # (Auto) 1.43 K/uL (0.11-0.59) H 09/28/25 Unknown Eos # (Auto) 0.04 K/uL (0.00-0.50) 09/28/25 Unknown Baso # (Auto) 0.04 K/uL (0.00-0.20) 09/28/25 Unknown Immature Gran # (Auto) 0.06 K/uL (0.01-0.20) 09/28/25 Unknown Sodium 139 mmol/L (136-145) 09/28/25 Unknown Potassium 4.1 mmol/L (3.5-5.1) 09/28/25 Unknown Chloride 106 mmol/L (98-107) 09/28/25 Unknown Carbon Dioxide 26 mmol/L (21-32) 09/28/25 Unknown Anion Gap 7 (3-11) 09/28/25 Unknown BUN 16 mg/dl (6-23) 09/28/25 Unknown Creatinine 0.98 mg/dl (0.6-1.4) 09/28/25 Unknown Est Cr Clr Drug Dosing 65.3 ml/min 09/28/25 Unknown eGFR 82.44 09/28/25 Unknown BUN/Creatinine Ratio 16.3 (10-20) 09/28/25 Unknown Glucose 193 mg/dl (70-99(Fasting)) H 09/28/25 Unknown Calcium 9.7 mg/dl (8.6-10.3) 09/28/25 Unknown Total Bilirubin 0.7 mg/dl (0.2-1.0) 09/28/25 Unknown AST 40 U/L (13-39) H 09/28/25 Unknown ALT 45 U/L (7-52) 09/28/25 Unknown Alkaline Phosphatase 88 U/L (34-104) 09/28/25 Unknown Troponin I High Sens 244.9 pg/ml (0-20) H* D 09/28/25 Unknown Total Protein 7.9 gm/dl (6.0-8.3) 09/28/25 Unknown Albumin 4.5 gm/dl (3.4-5.0) 09/28/25 Unknown Globulin 3.4 gm/dl (2.5-4.0) 09/28/25 Unknown Albumin/Globulin Ratio 1.3 (0.9-2) 09/28/25 Unknown Impressions Chest X-Ray 09/28/25 21:27 Exam(s): XR CXR 1 VIEW EXAM: XR Chest, 1 View CLINICAL HISTORY: Reason for exam: Chest pain, nonspecific. TECHNIQUE: Frontal view of the chest. COMPARISON: 07/31/2017 FINDINGS: Lungs: No consolidation. Pleural space: No significant pleural effusion. No pneumothorax. Heart: No cardiomegaly or pulmonary vascular congestion. Bones/joints: No acute fracture. No dislocation. IMPRESSION: No evidence of acute cardiopulmonary disease. Electronically signed by: Sallie Astorga M.D. 09/28/25 23:21 PM Code Status & VTE Plan Code Status Full code VTE Prophylaxis Plan VTE Prophylaxis will be ordered: Yes PG Care Time/CCT Total # of Minutes Spent Total Time Spent with Patient: Total time spent is greater than 50% in coordination of care (as documented) at patient's floor/unit and/or counseling patient: Coding Level of Care Code 01298 INT INP/OBS CARE 3/75MIN Diagnoses Non-ST elevation (NSTEMI) myocardial infarction I21.4 Aortic stenosis I35.0 Type 2 diabetes mellitus E11.9 S/P coronary artery stent placement Z95.5
[2025-09-29] MEDS: diphenhydrAMINE 50 MG/ML VIAL IV STA (00:15)
[2025-09-29] MEDS ORDERED: NITROGLYCERIN SL 0.4 MG/TAB TAB SL PRN (01:52)
[2025-09-29] MEDS ORDERED: GLUCAGON FOR INJ 1 MG VIAL SQ PRN (01:52)
[2025-09-29] MEDS ORDERED: CARBOHYDRATES FOR HYPOGLYCEMIA PO PRN (01:52)
[2025-09-29] MEDS ORDERED: DEXTROSE 50% 50 ML SYRINGE IV PRN (01:52)
[2025-09-29] MEDS ORDERED: GLUCOSE 10 TAB/TUBE PO PRN (01:52)
[2025-09-29] MEDS ORDERED: GLUCOSE 40% GEL 15 GM TUBE PO PRN (01:52)
[2025-09-29] MEDS ORDERED: ACETAMINOPHEN 325 MG TAB PO PRN (01:52)
[2025-09-29] MEDS: LORazepam Inj 1 MG in SYRINGE 0.5 ML IV ONE (02:14)
[2025-09-29 06:01] LABS: Hematocrit (blood only) 43.4 % (42.0-52.0); Hemoglobin 15.6 g/dL (14.0-18.0); Immature Granulocytes # (auto) 0.04 K/uL (0.01-0.20); Immature Granulocytes % (auto) 0.3 %; Mean Corpuscular Hemoglobin 34.6 pg (25.0-34.0); Mean Corpuscular Volume 96.2 fL (80.0-100.0); Platelet Count 107 K/uL (130-400); RDW Standard Deviation 44.9 fL (36.4-46.3); Red Blood Count 4.51 M/uL (4.70-6.10); White Blood Count 12.94 K/ul (4.8-10.8)
[2025-09-29 06:17] LABS: Alanine Aminotransferase 43.0 U/L (7-52); Albumin Globulin Ratio 1.4 (0.9-2); Albumin Level 4.7 gm/dl (3.4-5.0); Alkaline Phosphatase 89.0 U/L (34-104); Anion Gap 8.0 (3-11); Bilirubin,Total 0.8 mg/dl (0.2-1.0); Blood Urea Nitrogen 17.0 mg/dl (6-23); Calcium 9.6 mg/dl (8.6-10.3); Carbon Dioxide 26.0 mmol/L (21-32); Chloride 105.0 mmol/L (98-107); Cholesterol 121.0 mg/dl (0-200); Creatinine Clr Calc Pharmacy 71.2 ml/min; Globulin 3.3 gm/dl (2.5-4.0); Glucose 123.0 mg/dl (70-99(Fasting)); HDL Cholesterol 52.0 mg/dl; Magnesium 1.9 mg/dl (1.7-2.4); Potassium 4.0 mmol/L (3.5-5.1); Sodium 139.0 mmol/L (136-145); Total Protein 8.0 gm/dl (6.0-8.3); Triglycerides 123.0 mg/dl (0-150)
[2025-09-29 06:23] LABS: ANTI-Xa, UFH(UnfractionatedHep 0.57 IU/ml (0.3-0.7)
[2025-09-29 07:09] LABS: Hemoglobin A1C 5.9 % (4.5-5.6)
[2025-09-29] MEDS: CLOPIDOGREL BISULFATE 75 MG TAB PO SCH (08:46)
[2025-09-29] MEDS: ASPIRIN 81 MG ECTAB PO SCH (08:46)
[2025-09-29] MEDS: CYANOCOBALAMIN (B-12) 500 MCG TABLET PO SCH (08:47)
[2025-09-29] MEDS: MAGNESIUM OXIDE 400 MG TAB PO SCH (08:48)
[2025-09-29] MEDS: ISOSORBIDE MONO EXTENDED REL 60 MG TABCR PO SCH (08:48)
[2025-09-29] MEDS: MULTIVITAMIN TAB PO SCH (08:49)
[2025-09-29] MEDS: METOPROLOL SUCC 25MG EXT REL TAB PO SCH (08:49)
[2025-09-29] MEDS: VALSARTAN 80 MG TAB PO SCH (08:50)
[2025-09-29] MEDS: INSULIN ASPART PER UNIT CHARGE SC SCH (09:03)
--- NOTE | 2025-09-29 09:54 | Cardiology Consultation ---
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 This will likely occur tomorrow, NPO at midnight. - Continue with heparin drip. - Continue Plavix, ASA, statin therapy, metoprolol succinate, amlodipine, valsartan,and isosorbide mononitrate at this time. - Echocardiogram was obtained yesterday while in office. - Obtain lipid panel - May trend troponin and EKGs if chest pain reoccurs Supervising Physician Co-Signing Physician Notes Chart reviewed, patient interviewed with family present. Case reviewed with Airam Franks. His symptoms are as noted above, he developed chest discomfort during the night of September 27, and woke up with it in the morning. It resolved but a subsequent troponin measurement was elevated and therefore we sent him to the emergency room as this appears to be an acute coronary syndrome. He was admitted and his cardiac enzymes continue to be abnormal in a worrisome pattern. He has had no further discomfort and is on anticoagulation. With his history of coronary disease and what appears to be an unstable pattern stress testing is possibly dangerous, I think a catheterization would be the best option for evaluation. Will plan on doing that tomorrow, he should remain on anticoagulation overnight. History of Present Illness Reason for Consultation: chest pain, elevated trop, sent by cards Attending Physician: Joycelyn Monet MD History of Present Illness Stephon is a 69-year-old male with a past medical history of CAD s/p LMCA to LAD PCI with angioplasty of circumflex and mid RCA COUNTER TOP MAKER (Jul 2020), ischemic cardiomyopathy, HTN, HLD, , CVA who was admitted due to an elevated troponin level. On 09/28, Stephon was awoken by significant chest pain around 0500. He states that it felt like he suddenly got punched in the left side of his chest. This pain radiated across to the right side of his chest and up to both shoulders and down both arms. He felt significant weakness and fatigue with this chest discomfort. He did not experience any dizziness or near syncope, diaphoresis, shortness of breath or nausea. However, his felt that he was gasping for air while he had his chest pain. Around 0700 he took 1 nitroglycerin and at 0720 he took an additional one along with his other medications. This seemed to relieve his chest pain. He did make a same day appointment with cardiology. An echocardiogram was completed in office: Normal LV size and systolic function. EF 60 to 65% Possible small area of basal inferior hypokinesis to akinesis Mild Mild MR Considered to be a technically difficult study enhanced with Definity Troponin level was drawn and was found to be elevated at 197.8. The patient was then called and was directed to proceed to the emergency room for further evaluation. In the ER, his EKG reveals first-degree AV block with RBBB characteristics. His troponin level peaked at 248.7. An additional 243mg of aspirin was given to equal to 324 mg total. A heparin bolus/gtt was started. CXR was unremarkable. Upon assessment this morning, the patient complains of fatigue, but is currently not experiencing any chest discomfort. He does not endorse any dizziness, shortness of breath, or palpitations. Previous studies/procedures: 1. Echo 08/02/2020 at [facility]: LV EF 20-24% with diffuse mild hypokinesis to akines is. Mild MR. 2. Cardiac catheterization 08/02/2020 S: Impella placed. PCI of left main into LAD with TAYLER. PTCA of circumflex. Right heart catheterization also completed. 3. Temporary pacemaker 08/02/2020: Placed for complete heart block with ventricular escape rhythm in the setting of recurrent cardiac arrest. 4. Cardiac catheterization 08/05/2020 [facility]: Patent distal LM CA stent extending in the proximal LAD with mild residual disease within the left system. Mid RCA 100% COUNTER TOP MAKER. Distal RCA small and severely disease with 100% calcified lesion at bifurcation. Mid RCA underwent angioplasty with 1.5 x 15 mm balloon, resulting in 80% stenosis and SUSU 2 flow. Distal RCA 100% stenosis attempted 1.2 mm balloon angioplasty, but was unsuccessful. [id number] collaterals were noted. LVEDP greater than 20. 5. Echo 08/11/2020 [facility] EF 40-44%. Moderate sized septal and inferior wall motion abnormality with akinesis of the segments. Mild to moderate aortic stenosis with mean gradient of 18 and MARLENE of 1.5-1.6. Pleural effusion. 6. Echo 09/20/2020: Normal LV size and systolic function. EF 55-60%. Hypokinesis of the inferolateral wall. Small area of akinesis involving the basal inferior wall. Sclerotic aortic valve without stenosis. 7. PFT's 02/15/2022 [facility]: Within normal limits per report. 8. Echo 02/16/2022 [facility]: Normal LV size and systolic function. EF 60-65%. Small area of akinesis involving the basal inferior wall. Sclerotic aortic valve without stenosis. RVSP 23. 9. Nuclear stress 10/09/2022: Small area of possible apical ischemia. EF 55%. Normal wall motion. 10. Echo 09/12/2023 [facility]: LVEF 55-59%. Hypokinetic basal to mid inferior wall. Mild aortic stenosis (MARLENE 1.3; MG 14; PV 2.6). Ascending aorta 4.1 cm. Allergies Allergy/AdvReac Type Severity Reaction Status Date / Time Penicillins Allergy Intermediate rash, Verified 09/28/25 22:41 itching ondansetron [From Zofran] Allergy Mild rash Verified 09/28/25 22:41 ticagrelor [From Brilinta] Allergy Mild rash Verified 09/28/25 22:41 Home Medications Medication Instructions Recorded Confirmed Type aspirin 81 mg tablet,delayed 81 mg PO DAILY 09/13/20 09/28/25 History release (Adult Aspirin Regimen) multivitamin 1 tab PO DAILY 09/13/20 09/28/25 History trazodone 50 mg tablet 50 - 100 mg PO HS PRN Insomnia 02/13/22 09/28/25 History hydroxyzine HCl 50 mg tablet 50 mg PO DAILY PRN itching 05/15/22 09/28/25 History metformin 500 mg tablet 500 mg PO BID #180 tabs 08/01/23 09/28/25 Rx amlodipine 2.5 mg tablet 2.5 mg PO DAILY 07/14/24 09/28/25 History metoprolol succinate 25 mg 25 mg PO BID #200 tabs 11/12/24 11/11/25 Rx tablet,extended release 24 hr rosuvastatin 40 mg tablet (Crestor) 40 mg PO HS #100 tabs 09/29/24 09/28/25 Rx valsartan 40 mg tablet 80 mg (2 x 40 mg) PO DAILY #200 09/29/24 09/28/25 Rx tabs pantoprazole 20 mg tablet,delayed 20 mg PO DAILY 04/13/25 09/28/25 History release semaglutide 0.25 mg or 0.5 mg (2 0.5 mg subcut WK 04/13/25 09/28/25 History mg/3 mL) subcutaneous pen injector (Ozempic) clopidogrel 75 mg tablet 75 mg PO QAM 09/28/25 09/28/25 History cyanocobalamin (vitamin B-12) 1,000 mcg PO DAILY 09/28/25 09/28/25 History 1,000 mcg tablet (Vitamin B-12) isosorbide mononitrate 120 mg 120 mg PO DAILY 09/28/25 09/28/25 History tablet,extended release 24 hr magnesium oxide 400 mg PO DAILY 09/28/25 09/28/25 History nitroglycerin 0.4 mg sublingual 0.4 mg sublingual DIRECTED PRN 09/28/25 09/28/25 History tablet chest pain Patient History Medical History Cardiac arrest Social History Smoking Status: Former smoker Smoking End Date: 1979; Second Hand Exposure: No; Do You Dip or Chew Tobacco: No; Tobacco Cessation Education Requested by Patient: No Hx Alcohol Use: Yes Alcohol type: beer Hx Substance Use: No Preferred Language: Belarusian Communication Ability: Effective Welt Stitch Cleaner Required: No Beliefs That Will Affect Care: None Current Living Situation: Spouse Other Information That Helps Us Care for You: No Feels Safe at Home: Yes Safety Concerns: Feels Safe At This Time Assistive Devices: None Review of Systems Review of Systems: per hpi Physical Exam Physical Exam: Physical Exam: AOx3. Mood affect appear normal. All questions appropriately. HEENT: Sclerae are anicteric. Pupils are equal and reactive to light and accommodation. Extraocular movements were intact. Neuro: Cranial nerves intact Lungs: Lungs are clear to auscultation bilaterally. There are no rales wheezes or rhonchi. Normal respiratory effort without use of accessory muscles. Cardiac: The rhythm was regular. S1 and S2 were normal. There are no murmurs on examination. The PMI was not markedly displaced on palpation. Extremities: Patient has bilateral radial pulses that are equal in intensity. There is no evidence cyanosis or clubbing. There was no evidence of significant peripheral edema bilaterally. Skin: There are no rashes noted on examination today. Results & Data Vital Signs (Past 12 Hours) Vital Signs Temp Pulse Pulse Resp BP BP BP 09/29/25 07:33 36.3 C L 59 L 19 145/75 H 09/29/25 03:00 36.7 C 70 16 126/81 09/29/25 01:47 72 09/29/25 01:38 36.7 C 65 24 113/68 09/29/25 01:20 09/29/25 01:11 68 09/29/25 00:00 64 13 09/29/25 00:00 123/92 09/29/25 00:00 123/92 09/29/25 00:00 123/92 09/29/25 00:00 123/92 09/29/25 00:00 123/92 09/28/25 23:31 114/89 09/28/25 23:31 114/89 09/28/25 23:31 114/89 09/28/25 23:03 70 20 122/72 09/28/25 22:40 76 18 122/72 09/28/25 22:30 68 16 122/72 09/28/25 22:00 64 21 124/76 Pulse Ox O2 Del Method 09/29/25 07:33 96 Room Air 09/29/25 03:00 96 Room Air 09/29/25 01:47 09/29/25 01:38 96 Room Air 09/29/25 01:20 Room Air 09/29/25 01:11 09/29/25 00:00 09/29/25 00:00 09/29/25 00:00 09/29/25 00:00 09/29/25 00:00 09/29/25 00:00 09/28/25 23:31 09/28/25 23:31 09/28/25 23:31 09/28/25 23:03 09/28/25 22:40 98 Room Air 09/28/25 22:30 09/28/25 22:00 96 PG Care Time/CCT Total # of Minutes Spent Total Time Spent with Patient: Total time spent is greater than 50% in coordination of care (as documented) at patient's floor/unit and/or counseling patient: Coding [place] [address] INT INP/OBS CARE 3/75MIN Patient Type Established Diagnoses Non-ST elevation (NSTEMI) myocardial infarction I21.4 CAD (coronary artery disease) I25.10 S/P coronary artery stent placement Z95.5 Ischemic cardiomyopathy I25.5 Hypertension I10 Hyperlipidemia E78.5
--- NOTE | 2025-09-29 16:34 | XCELERA ---
[id number] \\[id number]
--- NOTE | 2025-09-29 17:45 | Hospitalist Progress Note ---
Date of Service September 29, 2025 Assessment & Plan (1) Non-ST elevation (NSTEMI) myocardial infarction: (2) Aortic stenosis: (3) Type 2 diabetes mellitus: (4) S/P coronary artery stent placement: Plan 69-year-old man with history of coronary artery disease and PCI with stenting in 2019. admitted with acute coronary syndrome / NSTEMI # NSTEMI No chest pain since yesterday, no shortness of breath. troponin downtrending, stable Diagnostic plan: Cardiology consultation ongoing, discussed with Dr. Carter, Coronary angiography tomorrow Daughter reports previous cardiac arrest during catheterization, paradoxical responses to anesthesia, challenging to sedate. Treatment plan: Current treatment includes aspirin, Plavix, heparin drip. Continue amlodipine, Imdur, metoprolol succ, valsartan and statin # Moderate Aortic Stenosis Stable. Diagnostic plan: TTE scheduled for today. # Type 2 Diabetes - mfn, semaglutide held Blood glucose within target range. A1c pending # Hyperlipidemia LDL 44, at goal. managed with rosuvastatin. # Thrombocytopenia Chronic condition. Platelet count 107, consistent with baseline. No anemia. # Coronary Artery Disease History of stent placement (2019). GERD- Continue pantoprazole Insomnia- Continue trazodone 50 mg p.o. at bedtime as needed Primary concern: return home MELISSA. Irritable and hesitant to stay in hospital very long. Family present. discussed. # DVT Prophylaxis: Receiving heparin drip Medical Complexity: Medical decision making was complex, high risk for clinical deterioration morbidity, or mortality for this encounter. Admission and Anticipated Discharge Date Admission Date: September 28, 2025 Subjective The patient is a 68-year-old male who came in due to a heart issue (NSTEMI). He has several other health conditions including moderate aortic stenosis, type 2 diabetes, high cholesterol, low platelet count, and coronary artery disease. He is accompanied by his and daughter. The patient is quite restless and does not want to be in the hospital, which is his usual behavior. He hasn't had any chest pain since yesterday and is not experiencing any shortness of breath. no chest pain palpitations or dyspnea Physical Exam Physical Exam: General Appearance: Restless but awake. Woke up easily from a nap. Vital signs: Reviewed past 24h vital signs in EMR, unremarkable. HEENT: Within normal limits. Respiratory: Clear to auscultation bilaterally. No rhonchi, rales, or wheezes. Cardiovascular: Regular rhythm. No murmurs, rubs, or gallops. Gastrointestinal: Soft, nontender, nondistended. Bowel sounds present. Extremities: Warm, well perfused, no edema. Skin: Warm, dry. No rashes. Neurological: Face symmetric. Speech intact. Alert and oriented x4. Psychiatric: Normal. Results & Data Results & Data Vital Signs (Past 12 Hours) Vital Signs Temp Pulse Resp BP Pulse Ox O2 Del Method 09/29/25 15:09 36.3 C L 56 L 17 95/57 L 93 Room Air 09/29/25 11:04 36.2 C L 59 L 17 100/55 L 97 Room Air 09/29/25 07:33 36.3 C L 59 L 19 145/75 H 96 Room Air Laboratory Results EKG: I personally reviewed and interpreted the EKG tracing and it showed: [EKG findings] {if none present delete this entire row} CXR: I personally reviewed and interpreted the chest x-ray film and it showed: [CXR findings] {if none delete this entire row} - Laboratory Studies: - Platelets: 107 - LDL: 44 PG Care Time/CCT Total # of Minutes Spent Total Time Spent with Patient: Total time spent is greater than 50% in coordination of care (as documented) at patient's floor/unit and/or counseling patient: Coding Level of Care Code 05878 SUB INP/OBS CARE 3/50MIN Diagnoses Non-ST elevation (NSTEMI) myocardial infarction I21.4 Aortic stenosis I35.0 Type 2 diabetes mellitus E11.9 S/P coronary artery stent placement Z95.5
[2025-09-29] MEDS: ROSUVASTATIN CALCIUM 20 MG TAB PO SCH (20:32)
[2025-09-30 06:54] LABS: Alanine Aminotransferase 57.0 U/L (7-52); Albumin Globulin Ratio 1.4 (0.9-2); Albumin Level 4.1 gm/dl (3.4-5.0); Alkaline Phosphatase 65.0 U/L (34-104); Anion Gap 8.0 (3-11); Bilirubin,Total 0.6 mg/dl (0.2-1.0); Blood Urea Nitrogen 15.0 mg/dl (6-23); Calcium 9.4 mg/dl (8.6-10.3); Carbon Dioxide 28.0 mmol/L (21-32); Chloride 104.0 mmol/L (98-107); Creatinine Clr Calc Pharmacy 75.3 ml/min; Globulin 3.0 gm/dl (2.5-4.0); Glucose 126.0 mg/dl (70-99(Fasting)); Magnesium 1.9 mg/dl (1.7-2.4); Potassium 3.9 mmol/L (3.5-5.1); Sodium 140.0 mmol/L (136-145); Total Protein 7.1 gm/dl (6.0-8.3)
[2025-09-30 06:57] LABS: ANTI-Xa, UFH(UnfractionatedHep 0.43 IU/ml (0.3-0.7)
[2025-09-30 07:43] LABS: Hematocrit (blood only) 42.1 % (42.0-52.0); Hemoglobin 14.8 g/dL (14.0-18.0); Mean Corpuscular Hemoglobin 33.6 pg (25.0-34.0); Mean Corpuscular Volume 95.7 fL (80.0-100.0); Platelet Count 83 K/uL (130-400); RDW Standard Deviation 45.0 fL (36.4-46.3); Red Blood Count 4.40 M/uL (4.70-6.10); White Blood Count 8.70 K/ul (4.8-10.8)
[2025-09-30 08:08] LABS: Acanthocytes 1+; Immature Granulocytes # (auto) 0.02 K/uL (0.01-0.20); Immature Granulocytes % (auto) 0.2 %; Polychromasia 1+; Stomatocytes 1+; Target Cells 1+
[2025-09-30 08:10] VITALS: TEMP 97.7
--- NOTE | 2025-09-30 10:01 | Pre Anesthesia Assessment ---
Date of Service September 30, 2025 Pre Sedation Assessment Vital Signs Temp Pulse Pulse Resp BP BP Pulse Ox 09/30/25 08:08 36.5 C 56 L 18 157/89 H 96 09/30/25 08:00 09/29/25 21:47 62 09/29/25 21:40 36.4 C L 56 L 19 99/62 L 92 09/29/25 20:36 58 L 103/66 09/29/25 15:09 36.3 C L 56 L 17 95/57 L 93 09/29/25 11:04 36.2 C L 59 L 17 100/55 L 97 O2 Del Method 09/30/25 08:08 Room Air 09/30/25 08:00 Room Air 09/29/25 21:47 09/29/25 21:40 Room Air 09/29/25 20:36 09/29/25 15:09 Room Air 09/29/25 11:04 Room Air Cardiovascular RRR, no murmur, no edema Respiratory normal respiratory effort, lungs clear to auscultation Pre-Sedation Airway Assessment Smoking Status: Former smoker Hx Sleep Apnea: No Short, Thick Neck: No Thyromental Distance: > or= 3.5 Finger Breadths Oral Cavity: + WNL Mallampati Class: IV ASA: ASA4 NPO Status Date of Last Intake of Fluids: 09/30/25 Time of Last Intake of Fluids: 08:30 Last Oral Intake of Fluids Comment: sip with meds Date of Last Intake of Solid Food: 09/29/25 Notes The planned sedation has been discussed with the patient. Informed Consent was obtained. I have identified the patient, determined the appropriateness of sedation and have assessed the patient immediately prior to the procedure. All medicine(s) and interventions are by my order.
[2025-09-30] MEDS: NITROGLYCERIN/D5W 100MCG/ML 20ML SYR ONE (10:29)
[2025-09-30] MEDS: IODIXANOL (VISIPAQUE) 320 MG/ML 100ML IV ONE (10:29)
[2025-09-30] MEDS: niCARdipine 2,000 MCG/20 ML SYR ONE (10:29)
[2025-09-30] MEDS: HEPARIN (PORCINE) 1000 UNIT/ML 10 ML (CATH LAB USE ONLY) ONE (10:44)
[2025-09-30] MEDS: MIDAZOLAM HCL 1 MG/ML 2ML VIAL ONE (10:44)
[2025-09-30] MEDS: OPTIRAY 350 ONE (10:45)
[2025-09-30] MEDS ORDERED: NITROGLYCERIN SL 0.4 MG/TAB TAB SL PRN (10:46)
--- NOTE | 2025-09-30 10:46 | Post Anesthesia Assessment ---
Date of Service September 30, 2025 Post Sedation Assessment Vital Signs Temp Pulse Pulse Resp BP BP Pulse Ox 09/30/25 10:00 63 09/30/25 08:08 36.5 C 56 L 18 157/89 H 96 09/30/25 08:00 09/29/25 21:47 62 09/29/25 21:40 36.4 C L 56 L 19 99/62 L 92 09/29/25 20:36 58 L 103/66 09/29/25 15:09 36.3 C L 56 L 17 95/57 L 93 09/29/25 11:04 36.2 C L 59 L 17 100/55 L 97 O2 Del Method 09/30/25 10:00 09/30/25 08:08 Room Air 09/30/25 08:00 Room Air 09/29/25 21:47 09/29/25 21:40 Room Air 09/29/25 20:36 09/29/25 15:09 Room Air 09/29/25 11:04 Room Air Recovery Score Activity: Moves 4 extremities Respiration: Deep Breath/Cough Circulation: +/-20% PreAnes Value Consciousness: Fully Awake Oxygen Saturation: > 92% On Room Air Discharge Sedation Level of Care: Fast Track Phase II Post Sedation Plan On clinical assessment, the patient appears to have tolerated the sedation without complications. Patient is recovering as anticipated. Patient will continue to be monitored by nursing and may be discharged when sedation discharge criteria are met per below protocol. Upon Completions of procedure up to 15 minutes continue every 5 minute vital signs and the P.A.R. score; then discharge to a Phase I or Fast Track to Phase II per the following guidelines: * Discharge Patient to appropriate Phase II area if PAR is 8 or greater or return to pre- procedure baseline. The post - procedure orders will be as directed. * If PAR score is less than 8 or not return to pre-procedure baseline then patient will follow Phase I monitoring till PAR is reached for Phase II. The Phase I may be done in procedure room or may call to secure a Phase I area. * If naloxone or flumazenil are used for reversal, hold in Phase I for continued monitoring from when last reversal dose was given for a minimum of 60 minutes or longer pending the nurse and/or physician discretion of patient condition before discharge to Phase II. Please call the Sedation Physician to re-evaluate and complete post-note for discharge to Phase II area. Do NOT discharge from procedure sedation or Phase 1 until post- sedation evaluation note is complete by procedure /sedation MD Sedation Discharge Instructions to be given to the patient at discharge to home. [facility] [place] Procedure Codes (Charges) Indication for Procedure Indication for procedure: NSTEMI known severe CAD
[2025-09-30 11:28] VITALS: PULSE 67; RESP 20
[2025-09-30 13:23] VITALS: BP 107/67; O2SAT 96
--- NOTE | 2025-09-30 14:42 | Discharge Summary ---
Discharge Summary Date of Service September 30, 2025 Principal Dx & Hospital Course #1 = Principal Diagnosis (1) Non-ST elevation (NSTEMI) myocardial infarction: (2) Aortic stenosis: (3) Type 2 diabetes mellitus: (4) S/P coronary artery stent placement: Plan 69-year-old man with history of coronary artery disease and PCI with stenting in 2019. admitted with acute coronary syndrome / NSTEMI # NSTEMI # Coronary Artery Disease History of stent placement (2019). Treated with heparin drip and his usual cardiac regimen which included beta- mary No further chest pain, no shortness of breath. troponin was mildly elevated then downtrending, stable Cardiology consulted TTE with no significant change from previous study. Mild aortic valve sclerosis without significant stenosis normal LV with EF 55-60%, normal RV func tion not well-visualized Underwent coronary angiogram 09/30 - he had from chronically occluded vessels otherwise nonobstructive coronary artery disease no interventions made. This is by verbal report from the certified prosthetist vice president final cath report is not completed yet. Treatment plan: continue aspirin, Plavix, amlodipine, Imdur, metoprolol succ, valsartan and statin. ranolazine was added for antianginal effect # said to have history of moderate aortic stenosis on current TTE only aortic sclerosis was visualized no significant aortic stenosis or AR # Type 2 Diabetes continue metformin and semaglutide A1c was 5.9 which is at goal # Hyperlipidemia LDL 44, at goal. managed with rosuvastatin. # Thrombocytopenia Chronic condition. Platelet count remained stable despite heparin drip, no anemia GERD- Continue pantoprazole Insomnia- Continue trazodone 50 mg p.o. at bedtime as needed Notes For Next Care Provider NSTEMI treated with heparin drip no obstructive lesions on coronary angiogram Medication Changes From Visit added ranolazine Admission HPI Per Admitting Provider The patient is a 69-year-old male with a past medical history including CAD, history of NSTEMI, mild aortic stenosis, hypertension, hyperlipidemia, diabetes mellitus type 2, CVA, history of coronary stent placement, and ischemic cardiomyopathy. He reports that he awoke with chest pain radiating to his left arm this morning, went to see his certified prosthetist vice president, who then referred him to the office to the emergency department due to abnormal laboratories and EKG changes. Initial troponin changed from initial 197.8 to 248.7 to 244.9. EKG showed normal sinus rhythm at 64, first-degree heart block, right bundle branch block, with NE interval increased compared to previous. The patient was given aspirin 243 mg today with his initial 81 mg at home for total 324, started on heparin drip with bolus per protocol, and then [facility]. [facility]charge Exam PHYSICAL EXAMINATION Last 24h vital signs reviewed, see documentation in flowsheet General: comfortable appearing, no distress HEENT: Normocephalic, atraumatic, pupils round and equal, sclerae anicteric, no conjunctival injection, moist mucus membranes Lungs: Normal respiratory effort. Clear to auscultation bilaterally. No RRW Heart: Regular rate and rhythm, systolic murmur. No JVD Abdomen: Soft, nontender, nondistended. Bowel sounds present. Extremities: Warm, dry, well-perfused. right wrist is still in TR band right hand is warm and well-perfused. No extremity edema. Neuro: Alert and oriented x 4, face symmetric, moves 4 extremities well Psych: Normal affect and behavior Discharge Plan Discharge Items Patient Disposition: Home - Self-Care Reason For Visit: NSTEMI Discharge Diagnosis: NSTEMI Condition on Discharge: Good Activity: Per Instructions section Non-emergency contact: Primary Care Provider and Personal Attendant Call non-emergency contact if: you have any medication questions and your symptoms worsen Follow-up/Referrals: Carroll German MD [Physician] - 10/19/25 11:30 am (Cardiology follow up: 10/19/25 @ 11:30am with Rhiannon at [facility] office. If sooner appt becomes available they will notify.) Joselito Kumar MD [Primary Care Provider] - Diet: Carb Consistent or DM2 and Heart Healthy Addtl Attending Provider Instructions: You had NSTEMI - a type of heart attack This was treated with medication - IV heparin and your other heart meds Coronary angiogram (cath) was done on 09/30, the certified prosthetist vice president did not see any areas of blockage that would benefit from stenting at this time. The certified prosthetist vice president recommended adding a medication called Ranexa - this medicine relaxes your coronary arteries and prevents angina. Continue your other medications. Follow up with Dr. German or his PA within a few weeks. It was a pleasure taking care of you in the hospital, Joycelyn Monet MD Pending Studies at Discharge: No Stand-Alone Forms: My [facility], Smoking Cessation Medications and DC Order Prescriptions: New ranolazine 500 mg Tablet Extended Release 12 Hr 500 mg PO BID Qty: 60 0RF Continued metformin 500 mg tablet 500 mg PO BID Qty: 180 3RF valsartan 40 mg tablet 80 mg PO DAILY Qty: 200 3RF rosuvastatin [Crestor] 40 mg tablet 40 mg PO HS Qty: 100 3RF metoprolol succinate 25 mg tablet extended release 24 hr 25 mg PO BID Qty: 200 3RF aspirin [Adult Aspirin Regimen] 81 mg tablet,delayed release (DR/EC) 81 mg PO DAILY multivitamin Tablet 1 tab PO DAILY hydroxyzine HCl 50 mg tablet 50 mg PO DAILY PRN (Reason: itching) trazodone 50 mg tablet 50 - 100 mg PO HS PRN (Reason: Insomnia) Ozempic 0.25 mg or 0.5 mg (2 mg/3 mL) pen injector 0.5 mg subcut WK Rx Instructions: SaturdayS pantoprazole 20 mg tablet,delayed release (DR/EC) 20 mg PO DAILY amlodipine 2.5 mg tablet 2.5 mg PO DAILY cyanocobalamin (vitamin B-12) [Vitamin B-12] 1,000 mcg Tablet 1,000 mcg PO DAILY magnesium oxide 400 mg magnesium Tablet 400 mg PO DAILY clopidogrel 75 mg tablet 75 mg PO QAM isosorbide mononitrate 120 mg tablet extended release 24 hr 120 mg PO DAILY nitroglycerin 0.4 mg tablet, sublingual 0.4 mg sublingual DIRECTED PRN (Reason: chest pain) Rx Instructions: do not exceed 3 doses per episode Discharge Orders: Discharge Order (Routine); Ordered 09/30/25 Ordered By: Joycelyn Saeed/Other Patient Handouts: Ranolazine Extended Release Oral Tablet, Clopid ogrel Oral Tablet, Heart Attack: Leaving the Hospital, Eating Heart-Healthy Foods Admission Data Admit Date/Time: 09/28/25 23:57 Attending Provider: Joycelyn Monet Admit Provider: Tyler Reyes Primary Care Provider: Joselito Kumar Other Providers: Tyler Reyes; Luis Carter Other Interventions: Discharge Summary Assessment (RN) Last Done: 09/30/25 15:33 Hospital Stay Data Consultations 09/28/25 23:06 ED Decision to Admit Stat 09/29/25 01:52 Consult Cardiology Routine 09/30/25 10:46 Consult Cardiac Rehabilitation Routine Procedures Performed Operation Date: 09/30/25 09:30 Actual Procedures p Cineradiography w/Routine Exam - Brady Kulkarni MD, PhD p Cath, Coronaries ONLY (no LV) - Brady Kulkarni MD, PhD Diagnostic Imagining Performed 09/30/25 05:53 CL Cath Imgs for PACS use only Routine Pending Results Patient Have Any Pending Studies at Discharge: No Discharge Instructions Given to Patient (Per Discharging Provider) You had NSTEMI - a type of heart attack This was treated with medication - IV heparin and your other heart meds Coronary angiogram (cath) was done on 09/30, the certified prosthetist vice president did not see any areas of blockage that would benefit from stenting at this time. The certified prosthetist vice president recommended adding a medication called Ranexa - this medicine relaxes your coronary arteries and prevents angina. Continue your other medications. Follow up with Dr. German or his PA within a few weeks. It was a pleasure taking care of you in the hospital, Joycelyn Monet MD Total Time Total Time Spent Total Time Spent (In Minutes): <30 Coding Level of Care Code 43775 IN/OBS DISCH 30 MIN/LESS Diagnoses Non-ST elevation (NSTEMI) myocardial infarction I21.4 Aortic stenosis I35.0 Type 2 diabetes mellitus E11.9 S/P coronary artery stent placement Z95.5
[2025-09-30] MEDS ORDERED: RANOLAZINE 500 MG ER TAB PO SCH (21:00)
--- NOTE | 2025-10-01 08:34 | Electrocardiogram Report ---
Test Reason : Blood Pressure : */* mmHG Vent. Rate : 64 BPM Atrial Rate : 64 BPM P-R Int : 234 ms QRS Dur : 156 ms QT Int : 456 ms P-R-T Axes : 54 -28 5 degrees QTcB Int : 470 ms Sinus rhythm with 1st degree A-V block Right bundle branch block Abnormal ECG When compared with ECG of 31-Jul-2017 12:29, [place] interval has increased Confirmed by Luis Carter ([id number]) on 10/01/2025 8:33:32 AM Referred By: REFERRED SELF Confirmed By: Luis Carter
--- NOTE | 2025-10-01 08:36 | Electrocardiogram Report ---
Test Reason : Blood Pressure : */* mmHG Vent. Rate : 61 BPM Atrial Rate : * BPM P-R Int : * ms QRS Dur : 152 ms QT Int : 482 ms P-R-T Axes : * -30 -4 degrees QTcB Int : 485 ms Sinus rhythm with occasional Premature ventricular complexes Left axis deviation Right bundle branch block Abnormal ECG When compared with ECG of 28-Sep-2025 21:19, (unconfirmed) No significant change Confirmed by Luis Carter ([id number]) on 10/01/2025 8:35:54 AM Referred By: REFERRED SELF Confirmed By: Luis Carter
--- NOTE | 2025-10-09 15:46 | Cardiac Catheterization ---
[facility] Data: Senior Test Analyst Cardiac Status Clinical evaluation leading to the procedure CAD Presenation: Non STEMI Anginal Classification: CCS IV Heart Failure: NYHA Class: CCS III Cardiogenic Shock within 24 Hours: No Cardiac Arrest within 24 Hours: No Imaging Studies Past 6 Months: Yes Stress Studies Past 6 Months: No Coronary Anatomy Dominant: Right Left Main (% Stenosis): Mid (Stent patent) and Distal (40%, hazy) LAD (% Stenosis): Proximal (Stent patent) D1 (% Stenosis): Normal D2 (% Stenosis): Normal Circumflex (% Stenosis): Proximal (Mild 20-30%), Mid (50%) and Distal (100% chronic) OM1 (% Stenosis): Normal OM2 (% Stenosis): Normal RCA (% Stenosis): Proximal (Mild diffuse) and Mid (100% chronic) R PDA (% Stenosis): Normal (Patent, not well-visualized) Diagnostic Physicians Name: Brady Kulkarni MD, PhD Closure Device Percutaneous Entry Location: Radial Closure Device: Radial Band Recommendations: Medical Therapy and/or Counseling Cardiac Cath Procedure Full Procedure Date September 30, 2025 Pre-Procedure Diagnosis Pre-Procedure Diagnosis: Non STEMI AUC Score AUC Score: 07 Post-Procedure Diagnosis Post-Procedure Diagnosis: Severe CAD Procedure(s) Performed Procedure(s) Performed: Coronary Angiography and Fractional Flow [place] [employer] Brady Kulkarni MD, PhD Estimated Blood Loss Estimated Blood Loss: 10 cc Medication(s) Medication(s): Fentanyl, Heparin, Lidocaine 1%, Nicardipine, Nitroglycerin and Versed Summary of Findings Brief description: Patient was brought to the cardiac catheterization suite where he was shaved and prepped in a sterile fashion. Sedated using IV Versed and fentanyl. Soft tissues of the right wrist were anesthetized using 2 mL of 1% Xylocaine. The right radial artery was accessed with modified Seldinger technique and a 6 [place]ian radial artery glide sheath was placed. Patient was provided a nticoagulation with IV heparin and antispasmodics including nicardipine and nitroglycerin. All catheters were advanced and exchanged over a 0.035 J-tip wire. Left coronary angiography in orthogonal views with a 5 Gambian JL 3.5 diagnostic catheter. Right coronary angiography in orthogonal views with a 5 Gambian JR4 diagnostic catheter. Diagnostic catheters were removed. Given the findings at the previously stented left main and LAD, decision was made to evaluate further with IFR analysis. A 6 [place]ian EBU 3.0 guide catheter was used to engage the left main coronary. Through this the Omni Doppler wave wire was advanced in position with its transducer just distal to the guide catheter tip. Pressures were equalized. Guidewire was then advanced beyond the distal left main stent and into the LAD where was positioned with the transducer beyond the stent. IFR was sampled 3 times. Guidewire was removed and final angiographic evaluation was performed. Guide catheter was then removed. The radial artery sheath was removed. Hemostasis was obtained using the TR band. Patient remained hemodynamic stable and asymptomatic. He is returned to the recovery area. This ended the case. Coronary angiography findings: LMT-this is a large-caliber vessel which bifurcates into LAD and circumflex. There is a previously placed stent with the overlapped distal portion extending with a second stent into the ostial and proximal LAD. There was also significant calcification within the vessel wall. There is a hazy appearing lesion of 40-50% in this area. There is a stepdown from the left main into the LAD. LAD-large caliber and transapical. Provides a large septal branch and 2 small caliber diagonals. Ostial to proximal stent is patent. Remainder of the vessel has mild to moderate calcification and diffuse mild less than 30% stenosis. LCx-large caliber and nondominant. Travels in the AV groove where its first branch is an atrial branch. It has mild less than 20 to 30% stenosis proximally and then gives a large caliber OM1 which branches distally. The mid AV groove circumflex is somewhat tortuous and there is up to 50% stenosis. The vessel then gives a very large branching OM 2. The distal AV groove vessel appears small in caliber and is 100% occluded. RCA-large caliber and dominant vessel. Has mild diffuse disease proximally and then is 100% chronically occluded in the mid vessel. Distal vessel fills very slowly via right to right collateralization and appears medium in caliber. Terminates distally but is not well-visualized. IFR distal left main-0.96, 0.96, 0.96. Therefore, this is not hemodynamically significant. No evidence of dissection or perforation post IFR analysis SUSU-3 flow post IFR analysis Summary: 1. Patient with multivessel disease including severe distal circumflex and severe mid RCA stenosis (chronic occlusion). Mild disease elsewhere as described. 2. Previously placed left main and LAD overlapped stent is patent. Distal left main stepdown with calcification. This is proven by IFR analysis to not be hemodynamically significant. 3. No PCI indicated at this time. Recommend guideline directed medical therapy for secondary prevention including aspirin, metoprolol succinate, valsartan, and rosuvastatin. Also continue prior dual antiplatelet therapy with aspirin and Plavix and antianginal regimen including isosorbide mononitrate plus amlodipine. Hemodynamics Rest Ao:: 120/75 mmHg Final Ao: 135/79 mmHg LV: Not performed Recommendations Recommendations: Medical Therapy and/or Counseling Radiation Exposure (mGy) 1608 mGy, fluoroscopy time 6 minutes Contrast (mls) 80 cc Anesthesia 1 mg Versed, 50 mcg fentanyl IV. Start 1021, end 1046 Procedural Complication(s) None Disposition Senior Test Analyst Holding/Recovery I attest to the content of the Intraoperative Record and any orders documented therein. Any exceptions are noted below. [facility] Card Cath Procedure Codes Cardiac Catheterization Procedure 1: Cardiovascular Cath Procedures: 72690 Coronaries Procedure 2: Cardiovascular Cath Procedures: 69180 (Doppler) Pressure Wire Moderate Sedation Procedure 1: Sedation/Anesthesia: 91436 Mod Sedation by the same physician;Init15 Min Child Age 5 & Up (Initial 15 minutes, start time 1021) Procedure 2: Sedation/Anesthesia: 04574 Mod Sedation by the same physician; Ea [id number] Minutes (Additional 10 minutes, end time 1046) PG Care Time/CCT Total # of Minutes Spent Total Time Spent with Patient: Total time spent is greater than 50% in coordination of care (as documented) at patient's floor/unit and/or counseling patient:
== END 2025-09-30 17:16 | disposition home or self-care (01) | DRG 282 ==
LOC: ED 21:04 → SUATTDRO 23:57 → 2E 23:57
PROC: CLB.CCO (2025-09-30 09:30)